=== PATIENT | female | born 1970 | race Caucasian/White ===

== ENCOUNTER 2020-08-20 17:16 | Outpatient (CLI) | payer BC, SELFPAY ==
--- NOTE | ~2020-08-20 | MM_ITS ---
EXAMINATION: MM screening [facility] BI w karma HISTORY: Screening mammogram TECHNIQUE: Craniocaudal and mediolateral oblique 3-D tomosynthesis images were obtained and synthetic 2-D images were generated. CAD analysis was submitted and interpreted. COMPARISON: 08/04/2019, 07/28/2018, 07/14/2017 BREAST PARENCHYMAL COMPOSITION: The breasts are extremely dense, which lowers the sensitivity of mamm ography. FINDINGS: There is no evidence of suspicious mass, calcification, or architectural distortion to sugg est malignancy in either breast. There has been no suspicious interval change. IMPRESSION: 1. No mammographic evidence of malignancy. 2. Recommend routine screening mammography in one year. BI-RADS Category 1: Negative Reviewed, dictated and finalized at location A.
== END 2020-08-20 17:17 | disposition home or self-care (01) ==
LOC: ANHIMG 17:20
PROVIDERS: Visit Provider Nurse Practitioner Women's Health
DX: Z12.31 Encounter for screening mammogram for malignant neoplasm of breast (principal)
CPT/HCPCS: 77063; 77067

== ENCOUNTER 2021-08-22 08:05 | Outpatient (CLI) | payer BC, SELFPAY ==
--- NOTE | ~2021-08-22 | MM_ITS ---
EXAMINATION: MM screening [facility] BI w karma HISTORY: Screening TECHNIQUE: Craniocaudal and mediolateral oblique 3-D tomosynthesis images were obtained and synthetic 2-D images were generated. CAD analysis was submitted and interpreted. COMPARISON: Comparison to multiple prior studies sequentially, with oldest reviewed study dated 05/14. BREAST PARENCHYMAL COMPOSITION: The breasts are extremely dense, which lowers the sensitivity of mamm ography. FINDINGS: There is no evidence of suspicious mass, calcification, or architectural distortion to sugg est malignancy in either breast. There has been no suspicious interval change. IMPRESSION: 1. No mammographic evidence of malignancy. 2. Recommend routine screening mammography in one year. BI-RADS Category 1: Negative Reviewed, dictated and finalized at location A.
== END 2021-08-22 08:06 | disposition home or self-care (01) ==
LOC: ANHIMG 08:06
PROVIDERS: Visit Provider Nurse Practitioner Women's Health
DX: Z12.31 Encounter for screening mammogram for malignant neoplasm of breast (principal)
CPT/HCPCS: 77063; 77067

== ENCOUNTER 2022-04-08 01:53 | Day surgery (SDC) | payer OTHER, SELFPAY ==
[2022-04-02 11:37] VITALS: BMI 23.2
--- NOTE | 2022-04-07 17:38 | PM.HPGS ---
History of Present Illness History of Present Illness Consent: Risks, benefits, and alternatives have been discussed and questions answered. Patient agrees to proceed with procedure. Chief complaint: diarrhea Narrative: Vonda Astorga is a 52 year old female with complaints of loose stools for over 5 years. Reports stools are watery, sometimes explosive with associated bloating and gas. She has at least 2 BM daily. she always has one in the morning and then the second one later it the day, usually 20-60 minutes after eating. She denies any association with any particular foods, her symptoms are better if she cooks her own food vs eating out though. Diarrhea is also worse 3-4 days before her menstrual cycle. Symptom improved some with eating a daily banana. She recently started on Metamucil but states it made her diarrhea worse so she discontinued it. Previous celiac panel was negative. Review of Systems Review of Systems: All systems reviewed & are unremarkable except as noted in HPI and below PMFSH Past Medical History Medical History Loose stools Social History Social History Smoking status: Never smoker Alcohol intake: current Alcohol use details: 5 drinks per year Substance use: never Living arrangements: with family Spiritual care concerns: No Meds Home Medications and Allergies Home Medications Medication Instructions Recorded Confirmed Type norethindrone acetate 5 mg tablet 5 mg PO DAILY 01/26/22 04/02/22 History multivit with min-folic acid 1 tablet PO DAILY 04/02/22 04/02/22 History [Adult One Daily Multivitamin] sodium sul 1.479 gram-potas ch See Rx Instructions PO PER PKG DIR 04/02/22 04/08/22 Rx 0.188 gram-magnes sul 0.225 gram #24 tablet tablet Allergies Allergy/AdvReac Type Severity Reaction Status Date / Time morphine AdvReac Unknown Other Verified 04/08/22 09:10 Exam Const: General: alert Orientation/consciousness: patient oriented x3 Resp: Auscultation: clear to auscultation bilaterally Cardio: Rhythm: regular rhythm GI: GI Palp: Yes Soft to palpation and No Tenderness to palpation present (GI) Neuro: General: patient oriented x3 Assessment and Plan Assessment and plan (1) Chronic diarrhea: Code(s): K52.9 - Noninfective gastroenteritis and colitis, unspecified Status: Acute Assessment and Plan: Colonoscopy with possible biopsy or polypectomy or cautery or injection of substances.
[2022-04-08 09:15] VITALS: BP 121/78; PULSE 85; RESP 18; TEMP 36.5; O2SAT 98; BMI 22.4
[2022-04-08] MEDS: LACTATED RINGERS 1,000 ML 150 ML IV CONT (09:30)
--- NOTE | 2022-04-08 10:00 | WPDANESEPPF ---
Anes - Initial Pre Proc Eval Procedure: Operation Date: 04/08/22 10:30 Proposed Procedures p Screening Colonoscopy - Regulo Miller MD Date/Time: 04/08/22 10:00 Surgeon: Regulo Miller MD Pre Op Diagnosis: diarrhea Patient Data Age: 52 Gender: F Height: 1.88 m Weight: 79.4 kg Last Vital Signs Temp 97.7 F 04/08/22 09:15 Pulse 85 04/08/22 09:15 Resp 18 04/08/22 09:15 BP 121/78 04/08/22 09:15 Pulse Ox 98 04/08/22 09:15 Allergies Allergy/AdvReac Type Severity Reaction Status Date / Time morphine AdvReac Unknown Other Verified 04/08/22 09:10 Home Medications Medication Instructions Recorded Confirmed Type norethindrone acetate 5 mg tablet 5 mg PO DAILY 01/26/22 04/02/22 History multivit with min-folic acid 1 tablet PO DAILY 04/02/22 04/02/22 History [Adult One Daily Multivitamin] sodium sul 1.479 gram-potas ch See Rx Instructions PO PER PKG DIR 04/02/22 04/08/22 Rx 0.188 gram-magnes sul 0.225 gram #24 tablet tablet Patient hx anesthesia problems: none Family hx anesthesia problems: none Results Review: All pre-operative results and documents have been reviewed as part of the pre-operative evaluation. [facility] Past Medical History Medical History Loose stools Social History Social History Smoking status: Never smoker Alcohol intake: current Alcohol use details: 5 drinks per year Substance use: never Living arrangements: with family Spiritual care concerns: No Anes - Eval Final PreProcedure Day of Procedure 04/08/22 10:00 Patient weight: normal Heart: regular rate and rhythm Lungs: clear to auscultation Airway: Mallampati scale class II Neurological: alert and oriented Last oral intake: >/= 8 hours ASA classification: II Emergent: no Anesthetic plan: proceed Anesthesia type and monitoring: general GIVS and standard monitoring Results Review: All pre-operative results and documents have been reviewed as part of the pre-operative evaluation. Informed Consent: The patient's anesthetic plan and its attendant risks and benefits were discussed with the patient/family/POA. Questions were solicited and answers provided to the satisfaction of the patient/family/POA.
[2022-04-08] MEDS: SIMETHICONE ORAL SUSPENSION 20 MG/0.3 ML 30 ML BOTTLE 0.6 ML IRRIGATION (10:36)
[2022-04-08 10:51] VITALS: BP 96/72; PULSE 78; RESP 17; O2SAT 100
[2022-04-08 11:01] VITALS: BP 121/86; PULSE 67; RESP 18; O2SAT 100
[2022-04-08 11:11] VITALS: BP 130/79; PULSE 66; RESP 16; O2SAT 100
== END 2022-04-08 11:21 | disposition home or self-care (01) ==
PROVIDERS: PCP Nurse Practitioner; Visit Provider Internal Medicine Gastroenterology
PROC: 0DJD8ZZ Inspection of Lower Intestinal Tract, Via Natural or Artificial Opening Endoscopic (ICD-10-PCS; CPT 45378; principal; 2022-04-08 10:30)
DX: Z12.11 Encounter for screening for malignant neoplasm of colon (principal); R19.7 Diarrhea, unspecified
CPT/HCPCS: 45380; 88305; J2704; J7120

== ENCOUNTER 2022-06-03 15:38 | Emergency (ER) | payer OTHER, SELFPAY ==
--- NOTE | ~2022-06-03 | XR_ITS ---
EXAMINATION: XR hand LT min 3V DATE: 06/03/2022 16:20 INDICATION: Volleyball injury to the left fourth finger TECHNIQUE: Posteroanterior, oblique and lateral views of the left hand were obtained. COMPARISON: None. FINDINGS: Dorsal/ulnar dislocation of the fourth proximal interphalangeal joint. Small linear calcific density position ulnar to the head of the proximal phalanx likely representing a small avulsion fracture frag ment. Alignment of the remainder of the left hand is normal. No other fractures identified. Mild oste oarthritis at the first carpometacarpal and several interphalangeal joints. IMPRESSION: 1. Dorsal/ulnar dislocation of the left fourth proximal interphalangeal joint with small likely avuls ion fracture fragment along the ulnar side of the head of the proximal phalanx. Reviewed, dictated and finalized at location B. IMPRESSION: 1. Dorsal/ulnar dislocation of the left fourth proximal interphalangeal joint w ith small likely avulsion fracture fragment along the ulnar side of the head of the proximal phalanx.
--- NOTE | ~2022-06-03 | XR_ITS ---
XR hand LT min 3V DATE: 06/03/2022 17:36 INDICATION: Postoperative reduction examination, left fourth digit TECHNIQUE: 3 views of left hand COMPARISON: 06/03/2022 left hand FINDINGS: There is reduction of the posterior dislocation at the proximal interphalangeal joint of th e fourth digit, with evidence of a small cortical avulsion fracture from the anterior base of the mid dle phalanx. Subtle small bony densities are also noted at the dorsal aspect of the proximal interpha langeal joint. IMPRESSION: Reduction of posterior dislocation at proximal interphalangeal joint; small cortical avul maninder fracture of anterior base of middle phalanx Reviewed, dictated and finalized at location A. IMPRESSION: Reduction of posterior dislocation at proximal interphalangeal join t; small cortical avulsion fracture of anterior base of middle phalanx
[2022-06-03 16:07] VITALS: BP 115/65; PULSE 63; RESP 12; TEMP 36.7; O2SAT 100
--- NOTE | 2022-06-03 16:53 | ED.UPPEXIN ---
HPI - Extremity Injury (Upper) General Chief Complaint: Extremity Injury, Upper Stated Complaint: L hand pain Time Seen by Provider: 06/03/22 16:08 History of Present Illness HPI narrative: 32-year-old female presents to the emergency room for evaluation of a left fourth digit injury. Patient states she was playing volleyball when she attempted to spike the ball over the net causing her finger pain. Patient immediately noticed an abnormality in pain. Injury occurred just prior to arrival Related Data Home Medications Medication Instructions Recorded Confirmed norethindrone acetate 5 mg tablet 5 mg PO DAILY 01/26/22 04/02/22 multivitamin with minerals-folic 1 tablet PO DAILY 04/02/22 04/02/22 acid 0.4 mg tablet Allergies Allergy/AdvReac Type Severity Reaction Status Date / Time No Known Allergies Allergy Verified 04/08/22 10:29 Review of Systems Review of Systems: CONSTITUTIONAL: Denies fever, chills, or sweats. EYES: Denies visual changes, redness, or discharge. ENT: Denies rhinorrhea, congestion, sore throat, or otalgia. CARDIOVASCULAR: Denies chest pain, palpitations, or edema. RESPIRATORY: Denies cough or dyspnea. GASTROINTESTINAL: Denies abdominal pain, nausea, vomiting, or diarrhea. GENITOURINARY: Denies dysuria or hematuria. SKIN: Denies rash or itching. MUSCULOSKELETAL: Reports left fourth digit pain NEUROLOGIC: Denies headache, numbness, dizziness, or weakness. PSYCHIATRIC: Denies anxiety or depression. PMFSH Past Medical History Medical History Loose stools Social History Social History Smoking status: Never smoker Alcohol intake: current Alcohol use details: 5 drinks per year Substance use: never Spiritual care concerns: No Exam Narrative: GENERAL: Well-appearing, well-nourished, no physical limitations, and in no acute distress. HEAD: Normocephalic, atraumatic. EYES: Conjunctivae normal, PERRLA and EOMI. CHEST: Clear to auscultation. No respiratory distress. No wheezes rales or rhonchi. No tenderness. HEART: Regular rate and rhythm. No murmur heard. Normal peripheral pulses. ABDOMEN: Soft, nontender, nondistended, normal active bowel sounds. EXTREMITIES: Left hand: Obvious bony abnormality to the fourth digit, tenderness to the PIP joint. With swelling, neurovascular is intact as SKIN: Warm, dry, no rash. No noted wounds NEURO: No focal deficits. Alert and oriented x3. MAEW. CN's II-XI intact bilaterally, normal gait PSYCH: Cooperative. Normal mood and affect. Course Vital Signs Vital signs: Vital Signs Temperature 36.7 C 06/03/22 16:07 Pulse Rate 63 06/03/22 16:07 Respiratory Rate 12 06/03/22 16:07 Blood Pressure 115/65 06/03/22 16:07 Pulse Oximetry 100 06/03/22 16:07 Temperature 36.7 C 06/03/22 16:07 Pulse Rate 63 06/03/22 16:07 Respiratory Rate 12 06/03/22 16:07 Blood Pressure 115/65 06/03/22 16:07 Pulse Oximetry 100 06/03/22 16:07 Procedures Orthopedic Joint Reduction Joint #1: Orthopedic Joint Reduction Date: 06/03/22 Orthopedic Joint Reduction Time: 17:34 Time Out Performed: Yes Side: right Joint Reduction Location: finger Analgesia: nerve block Pre-Procedure Neuro Vascular Exam: normal Local Anesthesia: lidocaine 1% Amount of anesthesic used (mL): 6 Technique used: direct manipulation Post-reduction neuro exam: intact Post-reduction vascular: intact Post Reduction X-Ray Obtained: Yes Post Reduction X-Ray Results: reduced Splint Applied: Yes Patient Tolerated Procedure: well Discharge Plan Discharge Clinical Impression: Dislocation of finger Patient Disposition: Home, Self-Care Condition: Stable Instructions: Antibiotic Form, Finger Fracture (ED) Additional Instructions: Tylenol and ibuprofen a
[2022-06-03] MEDS: LIDOCAINE HCL 2% LOCAL INJ 20 ML VIAL (17:10)
== END 2022-06-03 17:45 | disposition home or self-care (01) ==
PROVIDERS: Emergency Provider Nurse Practitioner Family; PCP Nurse Practitioner
DX: S63.285A Dislocation of proximal interphalangeal joint of left ring finger, initial encounter (principal); W21.06XA Struck by volleyball, initial encounter; Y93.68 Activity, volleyball (beach) (court)
CPT/HCPCS: 26770; 73130; 99282

== ENCOUNTER 2022-10-27 16:35 | Outpatient (CLI) | payer OTHER, SELFPAY ==
--- NOTE | ~2022-10-27 | MM_ITS ---
EXAMINATION: MM screening [facility] BI w karma HISTORY: Screening mammogram TECHNIQUE: Craniocaudal and mediolateral oblique 3-D tomosynthesis images were obtained and synthetic 2-D images were generated. CAD analysis was submitted and interpreted. COMPARISON: 08/22/2021, 08/20/2020, 08/04/2019 BREAST PARENCHYMAL COMPOSITION: The breasts are heterogeneously dense, which may obscure small masses . FINDINGS: No suspicious mass, calcification, or architectural distortion are identified in either narda ast to suggest malignancy. There has been no suspicious interval change. IMPRESSION: 1. No mammographic evidence of malignancy. 2. Recommend routine screening mammography in one year. 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
== END 2022-10-27 16:36 | disposition home or self-care (01) ==
LOC: ANHIMG 16:36
PROVIDERS: PCP Nurse Practitioner; Visit Provider Nurse Practitioner Women's Health
DX: Z12.31 Encounter for screening mammogram for malignant neoplasm of breast (principal)
CPT/HCPCS: 77063; 77067

== ENCOUNTER 2023-11-26 13:22 | Outpatient (CLI) | payer OTHER, SELFPAY ==
--- NOTE | ~2023-11-26 | MM_ITS ---
EXAMINATION: MM screening [facility] BI w karma HISTORY: Screening mammogram TECHNIQUE: Craniocaudal and mediolateral oblique 3-D tomosynthesis images were obtained and synthetic 2-D images were generated. CAD analysis was submitted and interpreted. COMPARISON: 10/27/2022, 08/22/2021, 08/20/2020 BREAST PARENCHYMAL COMPOSITION: The breasts are heterogeneously dense, which may obscure small masses . FINDINGS: No suspicious mass, calcification, or architectural distortion are identified in either narda ast to suggest malignancy. There has been no suspicious interval change. IMPRESSION: 1. No mammographic evidence of malignancy. 2. Recommend routine screening mammography in one year. 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
--- NOTE | ~2023-11-26 | DEXA_ITS ---
Bone Density Report Name: DEONDRE SANTILLAN Age: 53 Sex: Female Ethnicity: White Date of : 1970 Indication: screening for osteoporosis; cancer Referring Provider: UNKNOWN, UNKNOWN Study: Bone densitometry was performed. Exam Date: November 26, 2023 Accession number: [id number] Bone Density: Region BMD T-score Z-score Classification AP Spine(L1-L4) 1.206 1.4 2.4 Normal Femoral Neck (Left) 0.768 -0.7 0.2 Normal Total Hip (Left) 0.915 -0.2 0.4 Normal Femoral Neck (Right) 0.754 -0.9 0.1 Normal Total Hip (Right) 0.840 -0.8 -0.3 Normal Total Hip Mean 0.878 -0.5 0.1 Normal World Health Organization criteria for BMD impression classify patients as: Normal (T-score at or above -1.0), Osteopenia (T-score between -1.0 and -2.5), or Osteoporosis (T-score at or below -2.5). 10-year Fracture Risk: FRAX not reported because: Premenopausal woman All T-scores for Spine Total, Hip Total, Femoral Neck at or above -1.0 Clinical Information Provided by Patient: Has used the following medications: Vitamin D Has the following medical conditions: Cancer Patient maximum height was 73.5 Drinks caffeinated beverages Onset of menses at age 19 Premenopausal Number of children 0 Impression: The patient's bone mass is within expected range for age, gender and ethnicity. Discussion: BONE DENSITY IS WITHIN EXPECTED LIMITS FOR AGE, SEX AND RACE. Bone density is within expected limits for age, sex and race at all sites measured. The patient should follow a healthful lifestyle (good nutrition with adequate calcium and vitamin D, and appropriate weight-bearing exercise). Follow-Up: Consider repeating this study in 5 years or sooner if there is some new clinical indication. Reported by: [facility] on 11/26/2023 2:06:00 PM. Reviewed, dictated and finalized at location A. [facility]
== END 2023-11-26 13:23 | disposition home or self-care (01) ==
LOC: ANHIMG 13:26
PROVIDERS: PCP Nurse Practitioner
DX: Z12.31 Encounter for screening mammogram for malignant neoplasm of breast (principal); Z78.0 Asymptomatic menopausal state
CPT/HCPCS: 77063; 77067; 77080

== ENCOUNTER 2025-01-11 15:15 | Outpatient (CLI) | payer OTHER, SELFPAY ==
--- NOTE | ~2025-01-11 | MM_ITS ---
EXAMINATION: MM screening tamiko BI w karma HISTORY: Screening TECHNIQUE: Craniocaudal and mediolateral oblique 3-D tomosynthesis images were obtained and synthetic 2-D images were generated. CAD analysis was submitted and interpreted. COMPARISON: Comparison to multiple prior studies sequentially, with oldest reviewed study dated 04/2018. BREAST PARENCHYMAL COMPOSITION: Dense: The breasts are extremely dense, which lowers the sensitivity of mammography. FINDINGS: There is no evidence of suspicious mass, calcification, or architectural distortion to sugg est malignancy in either breast. There has been no suspicious interval change. IMPRESSION: 1. No mammographic evidence of malignancy. 2. Recommend routine screening mammography in one year. BI-RADS Category 1: Negative Reviewed, dictated and finalized at location B. [facility]
--- OUTSIDE RECORDS SUMMARY | 2025-01-11 15:21 | XMS_ITS ---
Care Plan - [facility] Created on: January 11, 2025 DEONDRE SANTILLAN : 1970 Sex: Female Author Organization [facility] Address [address] [place] [address] Phone Care Team Providers Care Emt P Name Role Phone HAM TROTTER, DAJA C Unavailable [phone]
--- OUTSIDE RECORDS SUMMARY | 2025-01-11 15:21 | XMS_ITS | Clinical Summary ---
Author Organization [facility] Address [address] [place] [address] Care Team Providers Care Warp Tier Name Role Phone Yumiko Chilel MD Primary Care Provider [phone] Allergies No known active allergies Medications norethindrone ac-eth estradioL (MICROGESTIN 12/11) 1-20 mg-mcg per tablet Take 1 tablet by mouth daily 1 Active ondansetron ODT (ZOFRAN-ODT) 8 mg disintegrating tabletIndications:P revention of Post-Operative Nausea and Vomiting Take 1 tablet (8 mg total) by mouth every 8 (eight) hours as needed for nausea or vomiting 12 tablet 1 2 Active Active Problems Problem Noted Date Diagnosed Date 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 11/27/2021 Overview (11/27/2021): Added automatically from request for surgery [id number] Surgical History Surgery Date Site/Laterality Comments APPENDECTOMY 11/22/2011 - 11/21/2012 ORAL SURGERY Medical History Medical History Date Comments H/O dysplastic nevus 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 Monthly or less 11/28/2021 Q2: How many drinks containi ng alcohol do you have on a typical day when you are drinking? 1 or 2 11/28/2021 Q3: How often do you have si x or more drinks on one occasion? 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 Gender Identity Female 06/23/2022 9:57 AM CDT Sexual Orientation Straight 06/23/2022 9: 57 AM CDT Obstetrics History Last Filed Vital Signs Vital Sign Reading Time Taken Comments Blood Pressure 107/68 12/02/2021 9:57 AM DIRECTOR CUSTOMER Pulse 71 12/02/2021 9:57 AM DIRECTOR CUSTOMER Temperature 37.2 C (99 F) 12/02/2021 9:57 AM DIRECTOR CUSTOMER Respiratory Rate 20 12/02/2021 9:57 AM DIRECTOR CUSTOMER Oxygen Saturation 99% 12/02/2021 9:57 AM DIRECTOR CUSTOMER Inhaled Oxygen Concentration - - Weight 81 kg (178 lb 9.2 oz) 12/02/2021 6:25 AM DIRECTOR CUSTOMER Height 188 cm (6' 2 ) 12/02/2021 6:25 AM DIRECTOR CUSTOMER Body Mass Index 22.93 12/02/2021 6:25 AM DIRECTOR CUSTOMER Plan of Treatment Health Maintenance Due Date Last Done Comments Breast Cancer Screening-Mammogram 1970 Cervical Cancer Screening 1970 Colon Cancer Screening-Colonoscopy 1970 Depression Screening 1970 Hepatitis C Screening 1970 DTaP/Tdap/Td Vaccine (1 - Tdap) 1982 Hepatitis B Screening 1989 Regular Well Visit/Exam 18-64 1989 Zoster Vaccine (2 of 2) 10/29/2023 09/03/2023 Influenza Vaccine (#1) 2024 Pneumococcal vaccine <65 Aged Out No longer eligible based on patient's age to complete this topic Insurance [facility] ACCESS CHOICE Care Teams Warp Tier Relationship Specialty Start Date End Date Yumiko Chilel MD PCP - General Nurse Practitioner 12/26/21
--- OUTSIDE RECORDS SUMMARY | 2025-01-11 15:21 | XMS_ITS | Clinical Summary ---
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 Alfred light Plan of Treatment No Plan of Treatment Recorded Assessments Includes: Assessments from this encounter Findings - Vaginitis - Last Documented On 08/19/2022 1:56PM ; [facility] Medical Equipment - Implanted Devices Includes: Current Devices No Medical Equipment Recorded Medications Includes: Medications discussed during this encounter and other current Medications New / Renewed during this visit HANNAH CHONG BC on 08/19/2022 metroNIDAZOLE 0.75% Vaginal Gel Provider: HANNAH CHONG BC 5 day supply: 1 gram, 0 refills Diagnosis: Acute vaginitis as directed 1 MAGALY IN VAGINA EVERY NIGHT X 5 Pharmacy: [facility] - [address] , [place], [phone] - Last Documented On 1:56PM By HANNAH RECINOS ; [facility] Current Medications (continue as prescribed) Norethindrone Acet-Ethinyl E st 1-20 MG-MCG Oral Tablet 09/13/2023 Provider: MIA Diaz Diagnosis: One tablet daily Last Documented On 3 12:16PM By MIA RECINOS ; [facility] Past Medications on file Fluconazole 150 MG Oral Tablet 11/17/2023 - 11/19/2023 Provider: HANNAH KAY RN IVONNE Diagnosis: Acute vaginitis as directed take one tablet today and repeat in 3 days Last Documented On 3 2:35PM By HANNAH RECINOS ; [facility] metroNIDAZOLE 500 MG Oral Tablet 08/25/2022 - 09/01/2022 Provider: HANNAH KAY RN IVONNE Diagnosis: Acute vaginitis One tablet twice a day ONE T WICE DAILY WITH FOOD NO ETOH Last Documented On 2 7:39AM By HANNAH RECINOS ; [facility] Flagyl 500MG Oral Tablet 07/19/2017 - 07/26/2017 Provi princess: MIA RECINOS Diagnosis: One tablet twice a day Last Documented On 7 2:40PM By MIA RECINOS ; [facility] Medications Administered Includes: Administered Medications from this encounter No Administered Medications Recorded Results Includes: Results discussed during this encounter LIQUID BASED PAP W HPV [facility] Laboratory Ordered by MIA SOTO on 08/14/[address] [place] [address], [id number] Collected: 08/14/2022 Report ed: 08/19/2022 12:07 tel: Last Documented On 2 1:28PM ; [facility] Reviewed by HANNAH KAY RN IVONNE on 08/19/2022; All test results are final unless otherwise noted. LIQUID BASED PAP W HPV See Note None Last Documented On 08/19/2022 12:25PM ; [facility] Note: Routine exam07/09//NONE GIVENCervix, EndocervixSatisfactory for evaluation.Endocervical/transformation zone componentpresent.Negative for intraepithelial lesion or malignancy.Shift in vaginal ramya suggestive of bacterialvaginosis.This Pap test has been evaluated with computerassisted technology.CAPUTO, CT(ASCP)CT Screening location:[id number] Administration MELISSA Giordano [id number] Observer: (ARC) History of Present Illness Includes: History of Present Illness from this encounter No History of Present Illness Recorded Social History No Social History Recorded - Smoking Status Unknown Procedures and Surgical History Surgical History Last Updated Previous colposcopy 202008/14/2022 Last Documented On 2 1:28PM ; [facility] History of appendectomy 08/13/2021 Last Documented On 2 1:28PM ; [facility] Surgical / procedural histor y oral surgery ~Deep tissue removed for mole on lower left back 08/13/2021 Last Documented On 2 1:28PM ; [facility] Medical History Includes: Medical History addressed during this encounter Description Last Updated History of screening mammogram was perfo rmed 08/20/2020 11/11/2023 Last Documented On 2 1:28PM ; [facility] LMP: 07/09/2022 11/11/2023 Last Documented On 2 1:28PM ; [facility] Last pap smear date 08/09/2020 08/13/2021 Last Documented On 2 1:28PM ; [facility] Aborta 1 08/13/2021 Last Documented On 2 1:28PM ; [facility] Cancer 08/13/2021 Last Documented On 2 1:28PM ; [facility] Contraception: loloestrin 08/13/2021 Last Documented On 2 1:28PM ; [facility] 1 08/13/2021 Last Documented On 2 1:28PM ; [facility] History of acute bronchitis monitored by PCP 08/13/2021 Last Documented On 2 1:28PM ; [facility] History of cervical dysplasia 12-31-08 COL PO LGSIL 08/13/2021 Last Documented On 2 1:28PM ; [facility] History of human papilloma virus infecti on 08/13/2021 Last Documented On 2 1:28PM ; [facility] History of Pap smear done 06/24/201707/24 12/2020 Last Documented On 2 1:28PM ; [facility] Result: normal 08/13/2021 Last Documented On 2 1:28PM ; [facility] Sexually active 08/13/2021 Last Documented On 2 1:28PM ; [facility] Result: normal 08/08/2020 Last Documented On 2 1:28PM ; [facility] Family History Includes: Family History addressed during this encounter Description Last Updated Maternal aunt's history of m alignant female breast neoplasm (2) maternal aunts 08/08/2020 Last Documented On 2 1:28PM ; [facility] Maternal history of hypertension mother 08/08/2020 Last Documented On 2 1:28PM ; [facility] Maternal uncle's history of diabetes lisbet litus maternal uncle 08/08/2020 Last Documented On 2 1:28PM ; [facility] Paternal grandfather's history of family history of heart disease pgf 08/08/2020 Last Documented On 2 1:28PM ; [facility] Family history unchanged 08/03/2019 Last Documented On 2 1:28PM ; [facility] Family history of heart disease fathers side 03/02/2013 Last Documented On 2 1:28PM ; [facility] Family history of malignant female breas t neoplasm (2) maternal aunts 03/02/2013 Last Documented On 2 1:28PM ; [facility] Spouse name: mikki 01/19/2011 Last Documented On 2 1:28PM ; [facility] Family history of hypertension mother Last Documented On 2 1:28PM ; [facility] Family history of diabetes mellitus mate rnal uncle 12/20/2009 Last Documented On 2 1:28PM ; [facility] Family history of Cancer 11/04/2009 Last Documented On 2 1:28PM ; [facility] Family medical history of high blood pre ssure 11/04/2009 Last Documented On 2 1:28PM ; [facility] Family medical history of High Cholester ol 11/04/2009 Last Documented On 2 1:28PM ; [facility] Review of Systems Includes: Review of Systems from this encounter No Review of Systems Recorded Mental Status Includes: Mental Status from this encounter No Mental Status Recorded Functional Status Includes: Functional Status from this encounter No Functional Status Recorded Physical Exam Includes: Physical Exam from this encounter No Physical Exam Recorded Allergies Includes: Active Allergies No Known Allergies Encounters Encounter Provider Location Date Check-In Time Check-Out Time Diagnosis CHART UPDATE HANNAH KAY RN [facility] 08/19/2022 1:27PM 11:59PM Vaginitis Insurance Includes: Active Insurance Policies Plan Name Member ID Group # Subscriber Relationship Effect alicja Dates 1 - [facility] [id number] DEONDRE bergeron Clinical Notes Includes: Clinical Notes from this encounter No Clinical Notes Recorded
--- OUTSIDE RECORDS SUMMARY | 2025-01-11 15:21 | XMS_ITS | Referral Summary ---
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 Gender Identity Female 06/23/2022 9:57 AM CDT Sexual Orientation Straight 06/23/2022 9: 57 AM CDT Last Filed Vital Signs Vital Sign Reading Time Taken Comments Blood Pressure 107/68 12/02/2021 9:57 AM SUPERVISOR [employer]INE GRADING Pulse 71 12/02/2021 9:57 AM SUPERVISOR [employer]INE GRADING Temperature 37.2 C (99 F) 12/02/2021 9:57 AM SUPERVISOR FINE GRADING Respiratory Rate 20 12/02/2021 9:57 AM SUPERVISOR FINE GRADING Oxygen Saturation 99% 12/02/2021 9:57 AM SUPERVISOR [employer]INE GRADING Inhaled Oxygen Concentration - - Weight 81 kg (178 lb 9.2 oz) 12/02/2021 6:25 AM SUPERVISOR [employer]AD[employer] Height 188 cm (6' 2 ) 12/02/2021 6:25 AM SUPERVISOR FINE GRADING Body Mass Index 22.93 12/02/2021 6:25 AM SUPERVISOR FINE GRADING Plan of Treatment Not on file Insurance [facility] [employer] Care Teams Warehouse Assembly Worker Relationship Specialty Start Date End Date Yumiko Chilel MD PCP - General Nurse Practitioner 12/26/21
--- OUTSIDE RECORDS SUMMARY | 2025-01-11 15:21 | XMS_ITS | Clinical Summary ---
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 Alfred light Plan of Treatment No Plan of Treatment Recorded Assessments Includes: Assessments from this encounter Findings - [N76.0 - Acute vaginitis] Vaginitis - Last Documented On 11/17/2023 2:34PM ; [facility] Medical Equipment - Implanted Devices Includes: Current Devices No Medical Equipment Recorded Medications Includes: Medications discussed during this encounter and other current Medications New / Renewed during this visit HANNAH KAY RN IVONNE on 11/17/2023 Fluconazole 150 MG Oral Tablet Provider: HANNAH KAY RN IVONNE BC 2 day supply: 2 tablet, 0 refills Diagnosis: Acute vaginitis as directed take one tablet today and repeat in 3 days Pharmacy: [facility] - [address] , [place], [phone] - Last Documented On 2:35PM By HANNAH RECINOS ; [facility] Current Medications (continue as prescribed) Norethindrone Acet-Ethinyl E st 1-20 MG-MCG Oral Tablet 09/13/2023 Provider: MIA Diaz Diagnosis: One tablet daily Last Documented On 3 12:16PM By MIA RECINOS ; [facility] Past Medications on file metroNIDAZOLE 500 MG Oral Tablet 08/25/2022 - 09/01/2022 Provider: HANNAH KAY RN IVONNE BC Diagnosis: Acute vaginitis One tablet twice a day ONE T WICE DAILY WITH FOOD NO ETOH Last Documented On 2 7:39AM By HANNAH KAY ABE ; [facility] metroNIDAZOLE 0.75% Vaginal Gel 08/19/2022 - 08/24/2022 Provider: HANNAH CHONG BC Diagnosis: Acute vaginitis as directed 1 MAGALY IN VAGINA EVERY NIGHT X 5 Last Documented On 2 1:56PM By HANNAH RECINOS ; [facility] Flagyl 500MG Oral Tablet 07/19/2017 - 07/26/2017 Provi princess: MIA RECINOS Diagnosis: One tablet twice a day Last Documented On 7 2:40PM By MIA RECINOS ; [facility] Medications Administered Includes: Administered Medications from this encounter No Administered Medications Recorded Results Includes: Results discussed during this encounter No Results Recorded For Specified Dates History of Present Illness Includes: History of Present Illness from this encounter No History of Present Illness Recorded Social History No Social History Recorded - Smoking Status Unknown Procedures and Surgical History Surgical History Last Updated Previous colposcopy 202008/14/2022 Last Documented On 3 2:32PM ; [facility] History of appendectomy 08/13/2021 Last Documented On 3 2:32PM ; [facility] Surgical / procedural histor y oral surgery ~Deep tissue removed for mole on lower left back 08/13/2021 Last Documented On 3 2:32PM ; [facility] Medical History Includes: Medical History addressed during this encounter Description Last Updated History of diaignostic fiberoptic colono scopy 04/08/2022 11/11/2023 Last Documented On 3 2:32PM ; [facility] History of screening mammogram was perfo rmed 10/27/2022 11/11/2023 Last Documented On 3 2:32PM ; [facility] LMP: 10/20/2023 11/11/2023 Last Documented On 3 2:32PM ; [facility] Aborta 1 08/13/2021 Last Documented On 3 2:32PM ; [facility] Cancer 08/13/2021 Last Documented On 3 2:32PM ; [facility] Contraception: loloestrin 08/13/2021 Last Documented On 3 2:32PM ; [facility] 1 08/13/2021 Last Documented On 3 2:32PM ; [facility] History of acute bronchitis monitored by PCP 08/13/2021 Last Documented On 3 2:32PM ; [facility] History of cervical dysplasia 12-31-08 COL PO LGSIL 08/13/2021 Last Documented On 3 2:32PM ; [facility] History of human papilloma virus infecti on 08/13/2021 Last Documented On 3 2:32PM ; [facility] Sexually active 08/13/2021 Last Documented On 3 2:32PM ; [facility] Family History Includes: Family History addressed during this encounter Description Last Updated Family history reviewed - unchanged [facility] e last visit 11/11/2023 Last Documented On 3 2:32PM ; [facility] Maternal aunt's history of m alignant female breast neoplasm (2) maternal aunts 08/08/2020 Last Documented On 3 2:32PM ; [facility] Maternal history of hypertension mother 08/08/2020 Last Documented On 3 2:32PM ; [facility] Maternal uncle's history of diabetes lisbet litus maternal uncle 08/08/2020 Last Documented On 3 2:32PM ; [facility] Paternal grandfather's history of family history of heart disease pgf 08/08/2020 Last Documented On 3 2:32PM ; [facility] Review of Systems Includes: Review of Systems [...] Time Diagnosis CHART UPDATE HANNAH KAY RN IVONNE 11/17/2023 2:32PM 11:59PM Vaginitis Insurance Includes: Active Insurance Policies Plan Name Member ID Group # Subscriber Relationship Effect alicja Dates 1 - [facility] [id number] DEONDRE Harrell SALIMAANA Torres [facility] Clinical Notes Includes: Clinical Notes from this encounter * Progress note Date Encounter Last Documented by 11/17/2023 CHART UPDATE Last documented on 11/17/2023; 2:34 PM, HANNAH KAY RN IVONNE ; [facility] Active Problems & Conditions - D23.9 - Compound Nevus - lower back-bx done [address] Jules Current Medication - Norethindrone Acet-Ethinyl Est 1-20 MG-MCG Oral Tablet One tablet daily, 84 days, 0 refills Past Medical/Surgical History Reported: LMP: 10/20/2023 and Contraception: loloestrin. Medical: Cancer. Surgical / Procedural: Surgical / procedural history oral surgery Deep tissue removed for mole on lower left back. Previous colposcopy 2020. : 1 and aborta 1. Sexual: Sexually active. Other: Diaignostic fiberoptic colonoscopy 04/08/2022. Screening mammogram was performed 10/27/2022 Diagnoses: Acute bronchitis monitored by PCP. Cervical dysplasia 12-31-08 COLPO LGSIL. Human papilloma virus infection Surgical: - Appendectomy Allergies - No Known Allergies Family History Family history reviewed - unchanged since last visit Maternal: Systemic hypertension mother Paternal grandfather's: Heart disease pgf Maternal aunt's: Malignant female breast neoplasm (2) maternal aunts Maternal uncle's: Diabetes mellitus maternal uncle Assessment - [N76.0 - Acute vaginitis] Vaginitis Plan StartCited - Acute vaginitis Fluconazole 150 MG tablet as directed take one tablet today and repeat in 3 days, 2 days, 0 refills EndCited StartCited - Other PHY ORDER/COMMENT Please inform pt pap is WNL and rx for yeast at pharmacy thanks EndCited Health Reminders - Colorectal Cancer Screening satisfied 04/08/2022. - Mammogram satisfied 10/27/2022.
--- OUTSIDE RECORDS SUMMARY | 2025-01-11 15:21 | XMS_ITS | Clinical Summary ---
Author Organization [facility] Address [address] [place] [address] Care Team Providers Care Statistical Engineer Name Role Phone Yumiko Chilel NP Primary Care Provider [phone] Allergies No known active allergies Medications norethindrone-et hinyl estradiol 1-20 MG-MCG tablet Take 1 tablet by mouth daily. 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 including hip ([facility]) 11/27/2021 Overview (12/08/2021): Added automatically from request for surgery [id number] Immunizations Name Administration Dates Next Due Shingrix 09/03/2023 Family History Medical History Relation Comments Heart Disease Father Breast Cancer Mother Hypertension Mother Heart Disease Paternal Grandfather Breast Cancer Sister 1 Breast Cancer Sister 2 Relation Status Comments Father Mother Paternal Grandfather Sister 1 Sister 2 Social History Tobacco Use Types Packs/Day Years Used Date Smoking Tobacco: Never Passive Smoke Exposure: Never Smokeless Tobacco: Never Tobacco Cessation:Counseling Given: No Comments:The provider can provide you with more information about quitting. Alcohol Use Standard Drinks/Week Comments Yes 0 (1 standard drink = 0.6 oz pur e alcohol) 1-6 drinks per year PHQ-2 Answer Date Recorded Patient Health Questionnaire-2 Score 0 05/06/2023 Comments No Sex and Gender Information Value Date Recorded Sex Assigned at Not on file Legal Sex Female 7:02 PM CDT Gender Identity Not on file Sexual Orientation Not on file Last Filed Vital Signs Vital Sign Reading Time Taken Comments Blood Pressure 135/82 05/06/2023 3:36 PM CDT Pulse 70 05/06/2023 3:36 PM CDT Temperature 36.9 C (98.4 F) 05/06/2023 3:36 PM CDT Respiratory Rate 22 05/06/2023 3:36 PM CDT Oxygen Saturation 100% 05/06/2023 3:36 PM CDT Inhaled Oxygen Concentration - - Weight 81.2 kg (179 lb) 05/06/2023 3:36 PM CDT Height 188 cm (6' 2 ) 05/06/2023 3:36 PM CDT Body Mass Index 22.98 05/06/2023 3:36 PM CDT Plan of Treatment Upcoming Encounters Date Type Department Care Team (Late st Contact Info) Description 02/06/2025 2:20 PM CDT Office Visit [facility] Family [facility] - [place] [address] [address] Yumiko Chilel, SECURITIES ANALYST [id number] [place] [address] Health Maintenance Due Date Last Done Comments Cervical Cancer Screening Pa p Smear (Age 30 to 64) Every 3 Years 1971 DTaP, Tdap and Td Vaccines ( 1 - Tdap) 1990 Hepatitis B Vaccines (1 of 3 - 19+ 3-dose series) 1990 Zoster Vaccines (2 of 2) 10/29/2023 09/03/2023 Annual Physical 05/06/2024 05/06/2023, 12/08/2021 COVID-19 Vaccine (1 - 2023-2 5 season) 2024 Influenza Adult (#1) 2024 PHQ-2 (Physician [place]) 11/22/2024 05/06/2023 Mammogram Screening 11/26/2025 11/26/2023 Cervical Cancer Screening Pa p with HPV Testing (Age 30 to 64) Every 5 Years 08/14/2027 08/14/2022 Cervical Cancer Screening wi th HPV 08/14/2027 Colorectal Cancer Screening Colonoscopy (10 Years) 04/08/2032 04/08/2022, 04/08/2022, 04/08/2022 Hepatitis C Completed 05/20/2023 Meningococcal B Vaccine Aged Out No l onger eligible based on patient's age to complete this topic Meningococcal Vaccine Aged Out No nancy rafa eligible based on patient's age to complete this topic Pneumococcal Vaccine: Pediatrics (0 to 5 Years) and At-Risk Patients (6 to 64 Years) Aged Out No longer eligible b ased on patient's age to complete this topic RSV Immunizations Under 20 Months Aged Out No longer eligible b ased on patient's age to complete this topic Procedures Procedure Name Priority Date/Time Associated Diagnosis Comments MAMMOGRAM GENERIC (SCAN ORDER) 11/26/2023 HEPATITIS C ANTIBODY W/RFX TO HCV RNA Routine 05/20/2023 7:58 AM CDT Need for hepatitis C screening test OUTSIDE CYTOPATH CERV/VAG INTERPRET (PAP) 08/14/2022 COLONOSCOPY GENERIC (SCAN ORDER) 04/08/2022 from Last 3 Months or Most Recently Relevant to Health Maintenance Results * MAMMOGRAM GENERIC (11/26/2023) Anatomical Region Laterality Modality Other 11/26/2023 [facility] Scanned SCANNING Final Resu lt * HEPATITIS C ANTIBODY W/RFX TO HCV RNA (05/20/2023 7:58 AM CDT) HEPATITIS C AB NON-REACT ISABELL NON-REACT [email or web address] [facility] Comment: HCV antibody was non-reactive. There is no laboratory evidence of HCV infection. In most cases, no further action is required. However, if recent HCV exposure is suspected, a test for HCV RNA (test code 89660) is suggested. For additional information please refer to http://education.[employer]/faq/ACJ99z5 (This link is being provided for informational/ educational purposes only.) 05/20/2023 7:58 AM CDT 05/20/2023 7:59 AM CDT Narrative Resulting Agency Comment Performing Organization Information: Site ID: [id number] Name: [facility] Address: [address] [address] Director: Hien Cruz MD Yumiko Chilel SECURITIES ANALYST LABORATORY Final Res ult [facility] [place] [address] [address], [place] * PAP SMEAR WITH HPV (08/14/2022) 08/14/2022 [facility] Scanned SCANNING Final Resu lt * COLONOSCOPY GENERIC (04/08/2022) 04/08/2022 [facility] Scanned SCANNING Final Resu lt from Last 3 Months or Most Recently Relevant to Health Maintenance Insurance Care Teams Statistical Engineer Relationship Specialty Start Date End Date Yumiko Chilel NP [id number] [place] [id number] PCP - General NURSE PRACTITIONER 11/07/21
--- OUTSIDE RECORDS SUMMARY | 2025-01-11 15:21 | XMS_ITS | Clinical Summary ---
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 Alfred light Plan of Treatment - Follow-up visit 1 year or as needed - Last Documented On 11/11/2023 3:40PM ; [facility] - Clinical summary provided to patient - Last Documented On 11/11/2023 3:40PM ; [facility] Pending Tests Order Diagnosis Results Due Ordering Provider In office procedures - *Clia Waived Labs Urine Test Irregular menstruation, unspecified 11/25/23 MIA LYNN NP-BC Last Documented On 4 11:21AM ; [facility] Instructions to patient Instructions for patient : B reast Self Exam discussed Last Documented On 3 3:14PM ; [facility] Education and Decision Aids were provided during visit for: Patient Education: Daily meena cium and vitamin D Last Documented On 3 3:14PM ; [facility] Patient Education: weight be aring exercise Last Documented On 3 3:14PM ; [facility] Assessments Includes: Assessments from this encounter Findings - NORMAL FEMALE EXAM [Z01.419 - Encounter for gynecological examination (general) (routine) without abnormal findings] - Last Documented On 11/11/2023 3:40PM ; [facility] - Screening Malig. Neoplasm Rectum [Z12.12 - Encounter for screening for malignant neoplasm of rectum] - Last Documented On 11/11/2023 3:40PM ; [facility] Instructions Includes: Instructions from this encounter Instructions to patient Instructions for patient : B reast Self Exam discussed Last Documented On 3 3:14PM ; [facility] Education and Decision Aids were provided during visit for: Patient Education: Daily meena cium and vitamin D Last Documented On 3 3:14PM ; [facility] Patient Education: weight be aring exercise Last Documented On 3 3:14PM ; [facility] Medical Equipment - Implanted Devices Includes: Current Devices No Medical Equipment Recorded Medications Includes: Medications discussed during this encounter and other current Medications Current Medications (continue as prescribed) Norethindrone Acet-Ethinyl E st 1-20 MG-MCG Oral Tablet 09/13/2023 Provider: MIA Diaz Diagnosis: One tablet daily Last Documented On 3 12:16PM By MIA RECINOS ; [facility] Past Medications on file Fluconazole 150 MG Oral Tablet 11/17/2023 - 11/19/2023 Provider: HANNAH CHONG BC Diagnosis: Acute vaginitis as directed take one tablet today and repeat in 3 days Last Documented On 3 2:35PM By HANNAH RECINOS ; [facility] metroNIDAZOLE 500 MG Oral Tablet 08/25/2022 - 09/01/2022 Provider: HANNAH CHONG BC Diagnosis: Acute vaginitis One tablet twice a day ONE T WICE DAILY WITH FOOD NO ETOH Last Documented On 2 7:39AM By HANNAH RECINOS ; [facility] metroNIDAZOLE 0.75% Vaginal Gel 08/19/2022 - 08/24/2022 Provider: HANNAH CHONG BC Diagnosis: Acute vaginitis as directed 1 MAGALY IN VAGINA EVERY NIGHT X 5 Last Documented On 2 1:56PM [facility] ; [facility] Flagyl 500MG Oral Tablet 07/19/2017 - 07/26/2017 Provi princess: [facility] Diagnosis: One tablet twice a day Last Documented On 7 2:40PM By [facility] ; [facility] Medications Administered Includes: Administered Medications from this encounter No Administered Medications Recorded Vital Signs Includes: Vital Signs from this encounter Vital Name 11/11/2023 03:21P Blood Pressure Sitting L 122/70 BP Cuff Size Regular Temp-Temporal 98.4 Height (in) 72 Weight (lb) 180.4 Body Mass Index 24.5 Body Surface Area 2 Last Documented: On 11/11/2023 3:23PM ; [facility] Results Includes: Results discussed during this encounter No Results Recorded For Specified Dates History of Present Illness Includes: History of Present Illness from this encounter JAMAL SANTILLAN is a 53 year old female. - Allergy list reviewed - Medication list reviewed - Primary Care Provider: Yumiko Goodwin, Social History Description Last Updated Not using alcohol 11/11/2023 Last Documented On 3 3:40PM ; [facility] Sexually active with 1 partn ers in the last year , control pills 11/11/2023 Last Documented On 3 3:40PM ; [facility] Tobacco non-user 08/14/2022 Last Documented On 3 3:14PM ; [facility] Not using drugs 08/13/2021 Last Documented On 3 3:14PM ; [facility] Smoking Status Unknown Procedures and Surgical History Includes: Procedures from this encounter Procedures Code Diagnosis Performing Provider Service L ocation Service Date use of tobacco assessment performed 1000F Last Documented On 3 3:20PM ; [facility] cervical Pap smear 79925 Last Documented On 3 3:14PM ; [facility] history of cervical Pap smear 08/13/2021 27882 Last Documented On 3 3:20PM ; [facility] fecal occult blood test was negative 87714 Last Documented On 3 3:14PM ; [facility] test negative Last Documented On 3 3:24PM ; [facility] Surgical History Last Updated Previous colposcopy 202008/14/2022 Last Documented On 3 3:14PM ; [facility] History of appendectomy 08/13/2021 Last Documented On 3 3:14PM ; [facility] Surgical / procedural histor y oral surgery ~Deep tissue removed for mole on lower left back 08/13/2021 Last Documented On 3 3:14PM ; [facility] Medical History Includes: Medical History addressed during this encounter Description Last Updated History of diaignostic fiberoptic colono scopy 04/08/2022 11/11/2023 Last Documented On 3 3:40PM ; [facility] History of screening mammogram was perfo rmed 10/27/2022 11/11/2023 Last Documented On 3 3:40PM ; [facility] LMP: 10/20/2023 11/11/2023 Last Documented On 3 3:40PM ; [facility] Aborta 1 08/13/2021 Last Documented On 3 3:14PM ; [facility] Cancer 08/13/2021 Last Documented On 3 3:14PM ; [facility] Contraception: loloestrin 08/13/2021 Last Documented On 3 3:14PM ; [facility] 1 08/13/2021 Last Documented On 3 3:14PM ; [facility] History of acute bronchitis monitored by PCP 08/13/2021 Last Documented On 3 3:14PM ; [facility] History of cervical dysplasia 12-31-08 COL PO LGSIL 08/13/2021 Last Documented On 3 3:14PM ; [facility] History of human papilloma virus infecti on 08/13/2021 Last Documented On 3 3:14PM ; [facility] Sexually active 08/13/2021 Last Documented On 3 3:14PM ; [facility] Family History Includes: Family History addressed during this encounter Description Last Updated Family history reviewed - unchanged [facility] e last visit 11/11/2023 Last Documented On 3 3:40PM ; [facility] Maternal aunt's history of m alignant female breast neoplasm (2) maternal aunts 08/08/2020 Last Documented On 3 3:14PM ; [facility] Maternal history of hypertension mother 08/08/2020 Last Documented On 3 3:14PM ; [facility] Maternal uncle's history of diabetes lisbet litus maternal uncle 08/08/2020 Last Documented On 3 3:14PM ; [facility] Paternal grandfather's history of family history of heart disease pgf 08/08/2020 Last Documented On 3 3:14PM ; [facility] Review of Systems Includes: Review of Systems from this encounter No Review of Systems Recorded Mental Status Includes: Mental Status from this encounter No Mental Status Recorded Functional Status Includes: Functional Status from this encounter No Functional Status Recorded Physical Exam Includes: Physical Exam from this encounter Allergies Includes: Active Allergies No Known Allergies Encounters Encounter Provider Location Date Check-In Time Check-Out Time Diagnosis [facility] - [facility]LISHED [facility] MIA LYNN [facility] 11/11/20 23 3:14PM 3:41PM Screening Malig. Neoplasm Rectum,Normal Female Exam Insurance Includes: Active Insurance Policies Plan Name Member ID Group # Subscriber Relationship Effect alicja Dates 1 - [facility] [id number] VONDA SANTILLAN S [facility] Clinical Notes Includes: Clinical Notes from this encounter * Progress note Date Encounter Last Documented by 11/11/2023 [facility]OMAN - ESTABLISHED PT Last documented on 11/11/2023; 3:40 PM, MIA LYNN IVONNE-; [facility] Active Problems & Conditions - Compound Nevus - lower back-bx done [address] Jules Chief Complaint The Chief Complaint is: WWE, no other concerns or problems, needs to have lipids done. History of Present Illness VONDA SANTILLAN is a 53 year old female. - Allergy list reviewed - Medication list reviewed - Primary Care Provider: Yumiko Goodwin, Current Medication - Norethindrone Acet-Ethinyl Est 1-20 [...] Human papilloma virus infection Surgical: - Appendectomy Social History Tobacco use: Tobacco non-user. Alcohol: Not using alcohol. Drug Use: Not using drugs. Sexual: Sexually active with 1 partners in the last year , control pills. Allergies - No Known Allergies Family History Family history reviewed - unchanged since last visit Maternal: Systemic hypertension mother Paternal grandfather's: Heart disease pgf Maternal aunt's: Malignant female breast neoplasm (2) maternal aunts Maternal uncle's: Diabetes mellitus maternal uncle Physical Findings - Vitals taken 11/11/2023 03:21 pm BP-Sitting L 122/70 mmHg BP Cuff Size Regular Temp-Temporal 98.4 F Height 72 in Weight 180 lbs 6.4 oz Body Mass Index 24.5 kg/m2 Body Surface Area 2 m2 Standard Measurements: - Patient was not observed to be obese. General Appearance: - Well developed. - Well nourished. - In no acute distress. Neck: Thyroid: - Showed no abnormalities. Lymph Nodes: - Supraclavicular lymph nodes were not enlarged. - Axillary lymph nodes were not enlarged. Breasts: Right Breast: - Nipple was normal. - No abnormal secretion. - No mass was found. - No tenderness. Left Breast: - Nipple was normal. - No abnormal secretion. - No mass was found. - No tenderness. Lungs: - Clear to auscultation. Cardiovascular: Heart Rate And Rhythm: - Normal. Murmurs: - No murmurs were heard. Back: - No right costovertebral angle tenderness. - No left costovertebral angle tenderness. Abdomen: Palpation: - Abdominal non-tender. - No mass was palpated in the abdomen. Liver: - Not enlarged. Spleen: - Not enlarged. Urinary System: Bladder: - Normal. - Not distended. - Not tender. - Did not have a mass. - Incontinence was not demonstrated. Genitalia: External: - Genitalia showed no abnormalities. Pelvic: - No ovarian mass. Vagina: - No vaginal discharge was observed. - No cystocele was observed. - No rectocele was observed. Cervix: - Showed no lesion. - Did not demonstrate pain elicited by motion. Uterus: - Not enlarged. - Not tender. Uterine Adnexae: - Uterine adnexa was not tender. Rectovaginal: - Tissue was normal. Rectal: - Exam: normal. Psychiatric: Appearance: - Grooming was normal. Tests Laboratory-based Chemistry: Fecal Analysis: Fecal occult blood test was negative. Laboratory Studies: Test: test negative. Pathology: Cytology: Cervical Pap smear. Assessment - NORMAL FEMALE EXAM [Z01.419 - Encounter for gynecological examination (general) (routine) without abnormal findings] - Screening Malig. Neoplasm Rectum [Z12.12 - Encounter for screening for malignant neoplasm of rectum] Previous Tests Pathology: Cytology: Cervical Pap smear 08/13/2021. Counseling/Education - Instructions for patient: Breast Self Exam discussed - Patient Education: Daily calcium and vitamin D - Patient Education: weight bearing exercise Will have FSH drawn at least one week after last active ocp. If not indicative of menopause, will refill for 1 year and recheck next year. Vonda is aware to abstain or use condoms as a back up method until results are available. Handwritten rx given for lab of ptTrini me[facility]. Had recent lipid panel done through employer, so will fwd results to me. Plan StartCited - Asymptomatic menopausal state Radiology @ other: DEXA (to be scheduled) EndCited StartCited - Encntr screen mammogram for malignant neoplasm of breast Radiology @ other/*MAMMOGRAPHY: SCREENING MAMMOGRAM Instructions: Additional images/ultrasounds if indicated Please send to PCP EndCited StartCited - Encounter for screening for malignant neoplasm of rectum In office procedures/*Clia Waived Labs: *FOBT* Fecal Occult Blood Test EndCited StartCited - Irregular menstruation, unspecified Lab: FSH Instructions: to be done at outside lab In office procedures/*Clia Waived Labs: Urine Test EndCited StartCited - Other Follow-up 1 year/prn - need most recent lipid panel please. Thank you! EndCited - Follow-up visit 1 year or as needed - Clinical summary provided to patient Practice Management Preventive medicine established patient checkup adult 40-64 years; Use of tobacco assessment performed. Health Reminders - Assess BMI satisfied 11/11/2023. - Assess Tobacco Use satisfied 11/11/2023. - Colorectal Cancer Screening satisfied 11/11/2023. - Mammogram satisfied 11/11/2023.
--- OUTSIDE RECORDS SUMMARY | 2025-01-11 15:21 | XMS_ITS | Clinical Summary ---
Author Organization 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 Note: lower back-bx done [address] Alfred light Plan of Treatment No Plan of Treatment Recorded Assessments Includes: Assessments from this encounter No Assessments Recorded Medical Equipment - Implanted Devices Includes: Current Devices No Medical Equipment Recorded Medications Includes: Medications discussed during this encounter and other current Medications Current Medications (continue as prescribed) Norethindrone Acet-Ethinyl E st 1-20 MG-MCG Oral Tablet 09/13/2023 Provider: MIA Diaz Diagnosis: One tablet daily Last Documented On 3 12:16PM By MIA LYNN IVONNE-BC ; [facility] Past Medications on file Fluconazole 150 MG Oral Tablet 11/17/2023 - 11/19/2023 Provider: HANNAH KAY RN IVONNE BC Diagnosis: Acute vaginitis as directed take one tablet today and repeat in 3 days Last Documented On 3 2:35PM By HANNAH RECINOS ; [facility] metroNIDAZOLE 500 MG Oral Tablet 08/25/2022 - 09/01/2022 Provider: HANNAH KAY RN IVONNE Diagnosis: Acute vaginitis One tablet twice a day ONE T WICE DAILY WITH FOOD NO ETOH Last Documented On 2 7:39AM By HANNAH KAY ABE ; [facility] metroNIDAZOLE 0.75% Vaginal Gel 08/19/2022 - 08/24/2022 Provider: HANNAH KAY RN IVONNE BC Diagnosis: Acute vaginitis as directed 1 MAGALY IN VAGINA EVERY NIGHT X 5 Last Documented On 2 1:56PM By HANNAH KAY ABE ; [facility] Flagyl 500MG Oral Tablet 07/19/2017 - 07/26/2017 Provi princess: MIA LYNN IVONNE- Diagnosis: One tablet twice a day Last Documented On 7 2:40PM By MIA LYNN FREDY ; [facility] Medications Administered Includes: Administered Medications from this encounter No Administered Medications Recorded Results Includes: Results discussed during this encounter No Results Recorded For Specified Dates History of Present Illness Includes: History of Present Illness from this encounter JAMAL SANTILLAN is a 53 year old female. [facility] name[facility]. Social History Description Last Updated Not using alcohol 11/11/2023 Last Documented On 4 11:16AM ; [facility] Sexually active with 1 partn ers in the last year , control pills 11/11/2023 Last Documented On 4 11:16AM ; [facility] Tobacco non-user 08/14/2022 Last Documented On 4 11:16AM ; [facility] Not using drugs 08/13/2021 Last Documented On 4 11:16AM ; [facility] Smoking Status Unknown Procedures and Surgical History Surgical History Last Updated Previous colposcopy 202008/14/2022 Last Documented On 4 11:16AM ; [facility] History of appendectomy 08/13/2021 Last Documented On 4 11:16AM ; [facility] Surgical / procedural histor y oral surgery ~Deep tissue removed for mole on lower left back 08/13/2021 Last Documented On 4 11:16AM ; [facility] Medical History Includes: Medical History addressed during this encounter Description Last Updated History of diaignostic fiberoptic colono scopy 04/08/2022 11/11/2023 Last Documented On 4 11:16AM ; [facility] History of screening mammogram was perfo rmed 10/27/2022 11/11/2023 Last Documented On 4 11:16AM ; [facility] LMP: 10/20/2023 11/11/2023 Last Documented On 4 11:16AM ; [facility] Aborta 1 08/13/2021 Last Documented On 4 11:16AM ; [facility] Cancer 08/13/2021 Last Documented On 4 11:16AM ; [facility] Contraception: loloestrin 08/13/2021 Last Documented On 4 11:16AM ; [facility] 1 08/13/2021 Last Documented On 4 11:16AM ; [facility] History of acute bronchitis monitored by PCP 08/13/2021 Last Documented On 4 11:16AM ; [facility] History of cervical dysplasia 2 COL PO LGSIL 08/13/2021 Last Documented On 4 11:16AM ; [facility] History of human papilloma virus infecti on 08/13/2021 Last Documented On 4 11:16AM ; [facility] Sexually active 08/13/2021 Last Documented On 4 11:16AM ; [facility] Family History Includes: Family History addressed during this encounter Description Last Updated Family history reviewed - unchanged [facility] e last visit 11/11/2023 Last Documented On 4 11:16AM ; [facility] Maternal aunt's history of m alignant female breast neoplasm (2) maternal aunts 08/08/2020 Last Documented On 4 11:16AM ; [facility] Maternal history of hypertension mother 08/08/2020 Last Documented On 4 11:16AM ; [facility] Maternal uncle's history of diabetes lisbet litus maternal uncle 08/08/2020 Last Documented On 4 11:16AM ; [facility] Paternal grandfather's history of family history of heart disease pgf 08/08/2020 Last Documented On 11:16AM ; [facility] Review of Systems Includes: Review of [...] Location Date Check-In Time Check-Out Time Diagnosis * [facility]/12/[facility] 11:16AM 11:59PM Insurance Includes: Active Insurance Policies Plan Name Member ID Group # Subscriber Relationship Effect alicja Dates 1 - [facility] [id number] DEONDRE SANTILLAN S elf Clinical Notes Includes: Clinical Notes from this encounter * Progress note Date Encounter Last Documented by 01/12/2024 * PHONE CALL Last documented on 01/12/2024; 11:20 AM, [facility] Active Problems & Conditions - Compound Nevus - lower back-bx done [address] Jules Chief Complaint Phone Call - Chief Concern: Reason for call: Patient called and said that she experiencing menopause symptoms such as hot flashes and night sweats. She is asking if you can send rx to [facility]. She is also asking that the medication be one that does not increase the risk of cancer as she is high risk already. pt phone # for return call: [phone] Date/Initials: 01/12/24 . History of Present Illness DEONDRE SANTILLAN is a 53 year old female. [facility] name[facility]. Current Medication - Norethindrone Acet-Ethinyl Est 1-20 [...] aunts Maternal uncle's: Diabetes mellitus maternal uncle Plan StartCited - Other PHY ORDER/COMMENT She will need to schedule consult for this. EndCited
--- OUTSIDE RECORDS SUMMARY | 2025-01-11 15:21 | XMS_ITS | Clinical Summary ---
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 [...] 3 12:16PM By MIA LYNN IVONNE-BC ; [facility] Past Medications on file Fluconazole 150 MG Oral Tablet 11/17/2023 - 11/19/2023 Provider: HANNAH KAY RN IVONNE BC Diagnosis: Acute vaginitis as directed take one tablet today and repeat in 3 days Last Documented On 3 2:35PM By HANNAH RECINOS ; [facility] metroNIDAZOLE 500 MG Oral Tablet 08/25/2022 - 09/01/2022 Provider: HANNAH KAY RN IVONNE BC Diagnosis: Acute vaginitis One tablet twice a day ONE T WICE DAILY WITH FOOD NO ETOH Last Documented On 2 7:39AM By HANNAH KAY ABE ; [facility] metroNIDAZOLE 0.75% Vaginal Gel 08/19/2022 - 08/24/2022 Provider: HANNAH KAY RN IVONNE BC Diagnosis: Acute vaginitis as directed 1 MAGALY IN VAGINA EVERY NIGHT X 5 Last Documented On 2 1:56PM By HANNAH RECINOS ; [facility] Flagyl 500MG Oral Tablet 07/19/2017 - 07/26/2017 Provi princess: MIA LAMA Diagnosis: One tablet twice a day Last Documented On 7 2:40PM By MIA LYNN FREDY ; [facility] Medications Administered Includes: Administered Medications from this [...] Previous colposcopy 202008/14/2022 Last Documented On 2 4:28PM ; [facility] History of appendectomy 08/13/2021 Last Documented On 2 4:28PM ; [facility] Surgical / procedural histor y oral surgery ~Deep tissue removed for mole on lower left back 08/13/2021 Last Documented On 2 4:28PM ; [facility] Medical History Includes: Medical History addressed during this encounter Description Last Updated History of screening mammogram was perfo rmed 08/20/2020 11/11/2023 Last Documented On 2 4:28PM ; [facility] LMP: 07/09/2022 11/11/2023 Last Documented On 2 4:28PM ; [facility] Last pap smear date 08/09/2020 08/13/2021 Last Documented On 2 4:28PM ; [facility] Aborta 1 08/13/2021 Last Documented On 2 4:28PM ; [facility] Cancer 08/13/2021 Last Documented On 2 4:28PM ; [facility] Contraception: loloestrin 08/13/2021 Last Documented On 2 4:28PM ; [facility] 1 08/13/2021 Last Documented On 2 4:28PM ; [facility] History of acute bronchitis monitored by PCP 08/13/2021 Last Documented On 2 4:28PM ; [facility] History of cervical dysplasia 12-31-08 COL PO LGSIL 08/13/2021 Last Documented On 2 4:28PM ; [facility] History of human papilloma virus infecti on 08/13/2021 Last Documented On 2 4:28PM ; [facility] History of Pap smear done 06/24/201707/24 Last Documented On 2 4:28PM ; [facility] Result: normal 08/13/2021 Last Documented On 2 4:28PM ; [facility] Sexually active 08/13/2021 Last Documented On 2 4:28PM ; [facility] Result: normal 08/08/2020 Last Documented On 2 4:28PM ; [facility] Family History Includes: Family History addressed during this encounter Description Last Updated Maternal aunt's history of m alignant female breast neoplasm (2) maternal aunts 08/08/2020 Last Documented On 2 4:28PM ; [facility] Maternal history of hypertension mother 08/08/2020 Last Documented On 2 4:28PM ; [facility] Maternal uncle's history of diabetes lisbet litus maternal uncle 08/08/2020 Last Documented On 2 4:28PM ; [facility] Paternal grandfather's history of family history of heart disease pgf 08/08/2020 Last Documented On 2 4:28PM ; [facility] Family history unchanged 08/03/2019 Last Documented On 2 4:28PM ; [facility] Family history of heart disease fathers side 03/02/2013 Last Documented On 2 4:28PM ; [facility] Family history of malignant female breas t neoplasm (2) maternal aunts 03/02/2013 Last Documented On 2 4:28PM ; [facility] Spouse name: mikki 01/19/2011 Last Documented On 2 4:28PM ; [facility] Family history of hypertension mother Last Documented On 2 4:28PM ; [facility] Family history of diabetes mellitus mate rnal uncle 12/20/2009 Last Documented On 2 4:28PM ; [facility] Family history of Cancer 11/04/2009 Last Documented On 2 4:28PM ; [facility] Family medical history of high blood pre ssure 11/04/2009 Last Documented On 2 4:28PM ; [facility] Family medical history of High Cholester ol 11/04/2009 Last Documented On 2 4:28PM ; [facility] Review of Systems Includes: Review of [...] Time Check-Out Time Diagnosis * PHONE CALL HANNAH KAY RN [facility] 08/24/2022 4:27PM 11:59PM Insurance Includes: Active Insurance Policies Plan Name Member ID Group # Subscriber Relationship Effect alicja Dates 1 - [facility] [id number] DENODRE bergeron Clinical Notes Includes: Clinical Notes from this encounter No Clinical Notes Recorded
--- OUTSIDE RECORDS SUMMARY | 2025-01-11 15:21 | XMS_ITS ---
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 Alfred light Plan of Treatment Findings Encounter Date Ordered Clinical summary pro vided to patient WELL WOMAN - ESTABLISHED PT with MIAOMEGA LYNN WHNP-BC 11/11/2023 Last Documented On 3 3:40PM ; [facility] Ordered follow-up visit 1 ye ar or as needed WELL WOMAN - ESTABLISHED PT with MIAOMEGA LYNN WHNP-BC 11/11/2023 Last Documented On 3 3:40PM ; [facility] Ordered Clinical summary pro vided to patient WELL WOMAN - ESTABLISHED PT with MIAOMEGA LYNN WHNP-BC 08/14/2022 Last Documented On 2 1:46PM ; [facility] Ordered follow-up visit 1 ye ar or as needed WELL WOMAN - ESTABLISHED PT with MIAOMEGA LYNN WHNP-BC 08/14/2022 Last Documented On 2 1:46PM ; [facility] Ordered Clinical summary pro vided to patient WELL WOMAN - ESTABLISHED PT with MIAOMEGA LYNN WHNP-BC 08/13/2021 Last Documented On 1 9:55AM ; [facility] Ordered follow-up visit 1 ye ar or as needed WELL WOMAN - ESTABLISHED PT with MIA LYNN WHNP-BC 08/13/2021 Last Documented On 1 9:55AM ; [facility] Ordered Clinical summary pro vided to patient WELL WOMAN EXAM with MIA LYNN WHNP-BC 08/08/2020 Last Documented On 0 10:20AM ; [facility] Ordered follow-up visit 1 ye ar or as needed WELL WOMAN EXAM with MIA LYNN WHNP-BC 08/08/2020 Last Documented On 0 10:20AM ; [facility] Ordered Clinical summary pro vided to patient WELL WOMAN EXAM with MIA LYNN WHNP-BC 08/03/2019 Last Documented On 9 10:08AM ; [facility] Ordered follow-up visit 1 ye ar or as needed WELL WOMAN EXAM with MIA LYNN WHNP-BC 08/03/2019 Last Documented On 9 10:08AM ; [facility] Ordered Clinical summary pro vided to patient ANNUAL EDGE FINISHER EXAM with MIA LYNN WHNP-BC 07/21/2018 Last Documented On 8 8:16AM ; [facility] Ordered follow-up visit 1 ye ar or as needed ANNUAL EDGE FINISHER EXAM with MIA LYNN WHNP-BC 07/21/2018 Last Documented On 8 8:16AM ; [facility] Ordered Clinical summary pro vided to patient ANNUAL EDGE FINISHER EXAM with MIA LYNN WHNP-BC 07/14/2017 Last Documented On 7 11:09AM ; [facility] Ordered follow-up visit 1 ye ar or as needed ANNUAL EDGE FINISHER EXAM with MIA LYNN WHNP-BC 07/14/2017 Last Documented On 7 11:09AM ; [facility] Ordered Clinical summary pro vided to patient ANNUAL EDGE FINISHER EXAM with MIA LYNN WHNP-BC 06/18/2016 Last Documented On 6 3:56PM ; [facility] Ordered follow-up visit 1 ye ar or as needed ANNUAL EDGE FINISHER EXAM with MIA LYNN WHNP-BC 06/18/2016 Last Documented On 6 3:56PM ; [facility] Ordered Clinical summary pro vided to patient PROP AND EFFECTS DESIGNER EXAM with MIA LYNN NP-BC 03/25/2015 Last Documented On 5 9:20AM ; [facility] Ordered follow-up visit 1 ye ar or as needed PROP AND EFFECTS DESIGNER EXAM with MIA LYNN NP-BC 03/25/2015 Last Documented On 5 9:20AM ; [facility] Ordered Clinical summary pro vided to patient ANNUAL EDGE FINISHER EXAM with MIA LYNN NP-BC 03/15/2014 Last Documented On 4 11:01AM ; [facility] Ordered follow-up visit 1 ye ar or as needed ANNUAL EDGE FINISHER EXAM with MIA LYNN NP-BC 03/15/2014 Last Documented On 4 11:01AM ; [facility] Ordered Clinical summary pro vided to patient PROP AND EFFECTS DESIGNER EXAM with MIA LYNN NP-BC 03/02/2013 Last Documented On 3 4:26PM ; [facility] Ordered follow-up visit 1 ye ar or as needed PROP AND EFFECTS DESIGNER EXAM with MAI LYNN NP-BC 03/02/2013 Last Documented On 3 4:26PM ; [facility] Vonda is agreeable to lower the dose of her ocp with next pill pack and get a mammogram burt. 2 samples of lo loestrin were given today and no further refills to be given until mammogram updated. She will also get a lipid panel when fasting at [facility] in [place]. She is still legally from her , but now in a sexual relationship with a new partner. She is seeing a counselor and doing well with this. She agrees to ct/ng today, but declines std blood work PROP AND EFFECTS DESIGNER EXAM with MIA LYNN NP-BC 01/27/2012 Last Documented On 2 9:18AM ; [facility] Ordered follow-up visit 1 ye ar or as needed PROP AND EFFECTS DESIGNER EXAM with MIA LYNN NP-BC 01/27/2012 Last Documented On 2 9:18AM ; [facility] Ordered follow-up visit 1 ye ar or as needed PROP AND EFFECTS DESIGNER EXAM with MIA LYNN NP-BC 01/19/2011 Last Documented On 1 8:44AM ; [facility] Instructions to patient Instructions for patient : B reast Self Exam discussed Last Documented On 3 3:14PM ; [facility] Instructions for patient : B reast Self Exam discussed Last Documented On 2 1:29PM ; [facility] Instructions for patient : B reast Self Exam discussed Last Documented On 1 9:36AM ; [facility] Colonoscopy Handout given to patient Last Documented On 1 9:36AM ; [facility] Instructions for patient : B reast Self Exam discussed Last Documented On 0 10:00AM ; [facility] Instructions for patient : B reast Self Exam discussed Last Documented On 9 9:44AM ; [facility] Instructions for patient : K eep the area around the vulva dry. Allow the area to have exposure to air. Avoid irritants such as fabric softeners and perfumed soaps.~ Last Documented On 9 10:06AM ; [facility] Advised d/c scented bath pro ducts Last Documented On 9 10:06AM ; [facility] Instructions for patient : B reast Self Exam discussed Last Documented On 8 7:58AM ; [facility] Instructions for patient : B reast Self Exam discussed Last Documented On 7 10:52AM ; [facility] Instructions for patient : B reast Self Exam discussed Last Documented On 6 3:27PM ; [facility] Instructions for patient : B reast Self Exam discussed Last Documented On 5 9:00AM ; [facility] Safe sex counseling Last Documented On 5 9:20AM ; [facility] Instructions for patient : B reast Self Exam discussed Last Documented On 4 10:46AM ; [facility] Instructions for patient : K eep the area around the vulva dry. Allow the area to have exposure to air. Avoid irritants such as fabric softeners and perfumed soaps.~ Last Documented On 4 10:56AM ; [facility] Advised d/c scented bath pro ducts Last Documented On 4 10:56AM ; [facility] Instructions for patient : B reast Self Exam discussed Last Documented On 3 3:57PM ; [facility] Instructions for patient : B reast Self Exam discussed Last Documented On 2 8:45AM ; [facility] Instructions for patient : K eep the area around the vulva dry. Allow the area to have exposure to air. Avoid irritants such as fabric softeners and perfumed soaps.~ Last Documented On 2 9:16AM ; [facility] Lose weight Last Documented On 2 8:49AM ; [facility] Advised d/c scented bath pro ducts Last Documented On 2 9:16AM ; [facility] Instructions for patient : B reast Self Exam discussed Last Documented On 1 8:17AM ; [facility] Instructions for patient : B reast Self Exam discussed Last Documented On 0 11:50AM ; [facility] Lose weight Last Documented On 0 11:50AM ; [facility] Education and Decision Aids were provided during visit for: Patient Education: Daily meena cium and vitamin D Last Documented On 3 3:14PM ; [facility] Patient Education: weight be aring exercise Last Documented On 3 3:14PM ; [facility] Patient Education: Daily meena cium and vitamin D Last Documented On 2 1:29PM ; [facility] Patient Education: weight be aring exercise Last Documented On 2 1:29PM ; [facility] Patient Education: Daily meena cium and vitamin D Last Documented On 1 9:36AM ; [facility] Patient Education: weight be aring exercise Last Documented On 1 9:36AM ; [facility] Patient Education: Daily meena cium and vitamin D Last Documented On 0 10:00AM ; [facility] Patient Education: weight be aring exercise Last Documented On 0 10:00AM ; [facility] Patient Education: Daily meena cium and vitamin D Last Documented On 9 9:44AM ; [facility] Patient Education: weight be aring exercise Last Documented On 9 9:44AM ; [facility] Bacterial Vaginosis Informat ion Sheet Given Last Documented On 9 10:06AM ; [facility] Patient Education: Daily meena cium and vitamin D Last Documented On 8 7:58AM ; [facility] Patient Education: weight be aring exercise Last Documented On 8 7:58AM ; [facility] Patient Education: Daily meena cium and vitamin D Last Documented On 7 10:52AM ; [facility] Patient Education: weight be aring exercise Last Documented On 7 10:52AM ; [facility] Patient Education: Daily meena cium and vitamin D Last Documented On 6 3:27PM ; [facility] Patient Education: weight be aring exercise Last Documented On 6 3:27PM ; [facility] Patient Education: Daily meena cium and vitamin D Last Documented On 5 9:00AM ; [facility] Patient Education: weight be aring exercise Last Documented On 5 9:00AM ; [facility] Patient Education: Daily meena cium and vitamin D Last Documented On 4 10:46AM ; [facility] Patient Education: weight be aring exercise Last Documented On 4 10:46AM ; [facility] Bacterial Vaginosis Informat ion Sheet Given Last Documented On 4 10:56AM ; [facility] Patient Education: Daily meena cium and vitamin D Last Documented On 3 3:57PM ; [facility] Patient Education: weight be aring exercise Last Documented On 3 3:57PM ; [facility] Patient Education: Daily meena cium and vitamin D Last Documented On 2 8:45AM ; [facility] Patient Education: weight be aring exercise Last Documented On 2 8:45AM ; [facility] Bacterial Vaginosis Informat ion Sheet Given Last Documented On 2 9:16AM ; [facility] control consent review ed and signed Last Documented On 2 8:49AM ; [facility] Patient Education: Daily meena cium and vitamin D Last Documented On 1 8:43AM ; [facility] Candidiasis Vulvovaginitis I nformation Sheet Given Last Documented On 1 8:43AM ; [facility] Patient education : Last Documented On 0 11:50AM ; [facility] Patient Education: weight be aring exercise Last Documented On 0 11:50AM ; [facility] Assessments Includes: Assessments for all patient encounters Findings Encounter Date Vaginitis CHART UPDATE with HANNAH KAY RN [facility] 11/17/2023 Last Documented On 3 2:34PM ; [facility] NORMAL FEMALE EXAM WELL WOMAN - ESTABLISHED PT w rakesh LYNN [facility] 11/11/2023 Last Documented On 3 3:40PM ; [facility] Screening Malig. Neoplasm Rectum WELL WO MAN - ESTABLISHED PT with MIA LYNN [facility] 11/11/2023 Last Documented On 3 3:40PM ; [facility] Vaginitis CHART UPDATE with HANNAH KAY RN [facility] 08/19/2022 Last Documented On 2 1:56PM ; [facility] NORMAL FEMALE EXAM WELL WOMAN - ESTABLISHED PT w rakesh LYNN [facility] 08/14/2022 Last Documented On 2 1:46PM ; [facility] Screening Malig. Neoplasm Rectum WELL WO MAN - ESTABLISHED PT with MIA LYNN [facility] 08/14/2022 Last Documented On 2 1:46PM ; [facility] NORMAL FEMALE EXAM WELL WOMAN - ESTABLISHED PT w rakesh LYNN [facility] 08/13/2021 Last Documented On 1 9:55AM ; [facility] Screening Malig. Neoplasm Rectum WELL WO MAN - ESTABLISHED PT with MIA LYNN [facility] 08/13/2021 Last Documented On 1 9:55AM ; [facility] NORMAL FEMALE EXAM WELL WOMAN EXAM with MIA LYNN [facility] 08/08/2020 Last Documented On 0 10:20AM ; [facility] Screening Malig. Neoplasm Rectum WELL WO MAN EXAM with MIAOMEGA LYNN NP-BC 08/08/2020 Last Documented On 0 10:20AM ; [facility] NORMAL FEMALE EXAM WELL WOMAN EXAM with MIAOMEGA LYNN NP-BC 08/03/2019 Last Documented On 9 10:08AM ; [facility] Screening Malig. Neoplasm Rectum WELL WO MAN EXAM with MIAOMEGA LYNN NP-BC 08/03/2019 Last Documented On 9 10:08AM ; [facility] Vulvovaginitis WELL WOMAN EXAM with MIAOMEGA WANG PALAK NP-BC 08/03/2019 Last Documented On 9 10:08AM ; [facility] NORMAL FEMALE EXAM ANNUAL EDGE FINISHER EXAM with MIAOMEGA LYNN NP-BC 07/21/2018 Last Documented On 8 8:16AM ; [facility] Screening Malig. Neoplasm Rectum ANNUAL EDGE FINISHER EXAM with MIAOMEGA LYNN NP-BC 07/21/2018 Last Documented On 8 8:16AM ; [facility] NORMAL FEMALE EXAM ANNUAL EDGE FINISHER EXAM with MIAOMEGA LYNN NP-BC 07/14/2017 Last Documented On 7 11:09AM ; [facility] Screening Malig. Neoplasm Rectum ANNUAL EDGE FINISHER EXAM with MIAOMEGA LYNN NP-BC 07/14/2017 Last Documented On 7 11:09AM ; [facility] NORMAL FEMALE EXAM ANNUAL EDGE FINISHER EXAM with MIAOMEGA LYNN NP-BC 06/18/2016 Last Documented On 6 3:56PM ; [facility] Screening Malig. Neoplasm Rectum ANNUAL EDGE FINISHER EXAM with MIAOMEGA LYNN NP-BC 06/18/2016 Last Documented On 6 3:56PM ; [facility] NORMAL FEMALE EXAM PROP AND EFFECTS DESIGNER EXAM with MIA LYNN [facility] 03/25/2015 Last Documented On 5 9:20AM ; [facility] Screening Malig. Neoplasm Rectum PROP AND EFFECTS DESIGNER EXAM with Joe LYNN NP-BC 03/25/2015 Last Documented On 5 9:20AM ; [facility] NORMAL FEMALE EXAM ANNUAL EDGE FINISHER EXAM with MIAOMEGA LYNN WHNP-BC 03/15/2014 Last Documented On 4 11:01AM ; [facility] Screening Malig. Neoplasm Rectum ANNUAL EDGE FINISHER EXAM with MIA LYNN [facility] 03/15/2014 Last Documented On 4 11:01AM ; [facility] Vulvovaginitis ANNUAL EDGE FINISHER EXAM with MIAOMEGA WANG PALAK [facility] 03/15/2014 Last Documented On 4 11:01AM ; [facility] NORMAL FEMALE EXAM PROP AND EFFECTS DESIGNER EXAM with MIA LYNN [place] [facility] 03/02/2013 Last Documented On 3 4:26PM ; [facility] Screening Malig. Neoplasm Rectum PROP AND EFFECTS DESIGNER EXAM with Joe LYNN [facility] 03/02/2013 Last Documented On 3 4:26PM ; [facility] NORMAL FEMALE EXAM PROP AND EFFECTS DESIGNER EXAM with MIA LYNN [place] [facility]-BC 01/27/2012 Last Documented On 2 9:18AM ; [facility] Screening Malig. Neoplasm Rectum PROP AND EFFECTS DESIGNER EXAM with Joe LYNN [facility] 01/27/2012 Last Documented On 2 9:18AM ; [facility] Vulvovaginitis PROP AND EFFECTS DESIGNER EXAM with MIA LYNN [facility] -BC 01/27/2012 Last Documented On 2 9:18AM ; [facility] Normal routine history and physical PROP AND EFFECTS DESIGNER EXAM wit h MIA LYNN [facility]- 01/19/2011 Last Documented On 1 8:44AM ; [facility] Routine pelvic exam PROP AND EFFECTS DESIGNER EXAM with MIA LYNN [facility]- 01/19/2011 Last Documented On 1 8:44AM ; [facility] HX of LGSIL RE-PAP with KAREN Gruber [facility] 06/19/2010 Last Documented On 0 10:01AM ; [facility] Routine pelvic exam PROP AND EFFECTS DESIGNER EXAM with KAREN CASAS [facility] 12/20/2009 Last Documented On 0 12:08PM ; [facility] Instructions Includes: Instructions for all patient encounters Instructions to patient Instructions for patient : B reast Self Exam discussed Last Documented On 3 3:14PM ; [facility] Instructions for patient : B reast Self Exam discussed Last Documented On 2 1:29PM ; [facility] Instructions for patient : B reast Self Exam discussed Last Documented On 1 9:36AM ; [facility] Colonoscopy Handout given to patient Last Documented On 1 9:36AM ; [facility] Instructions for patient : B reast Self Exam discussed Last Documented On 0 10:00AM ; [facility] Instructions for patient : B reast Self Exam discussed Last Documented On 9 9:44AM ; [facility] Instructions for patient : K eep the area around the vulva dry. Allow the area to have exposure to air. Avoid irritants such as fabric softeners and perfumed soaps.~ Last Documented On 9 10:06AM ; [facility] Advised d/c scented bath pro ducts Last Documented On 9 10:06AM ; [facility] Instructions for patient : B reast Self Exam discussed Last Documented On 8 7:58AM ; [facility] Instructions for patient : B reast Self Exam discussed Last Documented On 7 10:52AM ; [facility] Instructions for patient : B reast Self Exam discussed Last Documented On 6 3:27PM ; [facility] Instructions for patient : B reast Self Exam discussed Last Documented On 5 9:00AM ; [facility] Safe sex counseling Last Documented On 5 9:20AM ; [facility] Instructions for patient : B reast Self Exam discussed Last Documented On 4 10:46AM ; [facility] Instructions for patient : K eep the area around the vulva dry. Allow the area to have exposure to air. Avoid irritants such as fabric softeners and perfumed soaps.~ Last Documented On 4 10:56AM ; [facility] Advised d/c scented bath pro ducts Last Documented On 4 10:56AM ; [facility] Instructions for patient : B reast Self Exam discussed Last Documented On 3 3:57PM ; [facility] Instructions for patient : B reast Self Exam discussed Last Documented On 2 8:45AM ; [facility] Instructions for patient : K eep the area around the vulva dry. Allow the area to have exposure to air. Avoid irritants such as fabric softeners and perfumed soaps.~ Last Documented On 2 9:16AM ; [facility] Lose weight Last Documented On 2 8:49AM ; [facility] Advised d/c scented bath pro ducts Last Documented On 2 9:16AM ; [facility] Instructions for patient : B reast Self Exam discussed Last Documented On 1 8:17AM ; [facility] Instructions for patient : B reast Self Exam discussed Last Documented On 0 11:50AM ; [facility] Lose weight Last Documented On 0 11:50AM ; [facility] Education and Decision Aids were provided during visit for: Patient Education: Daily meena cium and vitamin D Last Documented On 3 3:14PM ; [facility] Patient Education: weight be aring exercise Last Documented On 3 3:14PM ; [facility] Patient Education: Daily meena cium and vitamin D Last Documented On 2 1:29PM ; [facility] Patient Education: weight be aring exercise Last Documented On 2 1:29PM ; [facility] Patient Education: Daily meena cium and vitamin D Last Documented On 1 9:36AM ; [facility] Patient Education: weight be aring exercise Last Documented On 1 9:36AM ; [facility] Patient Education: Daily meena cium and vitamin D Last Documented On 0 10:00AM ; [facility] Patient Education: weight be aring exercise Last Documented On 0 10:00AM ; [facility] Patient Education: Daily meena cium and vitamin D Last Documented On 9 9:44AM ; [facility] Patient Education: weight be aring exercise Last Documented On 9 9:44AM ; [facility] Bacterial Vaginosis Informat ion Sheet Given Last Documented On 9 10:06AM ; [facility] Patient Education: Daily meena cium and vitamin D Last Documented On 8 7:58AM ; [facility] Patient Education: weight be aring exercise Last Documented On 8 7:58AM ; [facility] [facility] Patient Education: Daily meena cium and vitamin D Last Documented On 7 10:52AM ; [facility] Patient Education: weight be aring exercise Last Documented On 7 10:52AM ; [facility] Patient Education: Daily meena cium and vitamin D Last Documented On 6 3:27PM ; [facility] Patient Education: weight be aring exercise Last Documented On 6 3:27PM ; [facility] Patient Education: Daily meena cium and vitamin D Last Documented On 5 9:00AM ; [facility] Patient Education: weight be aring exercise Last Documented On 5 9:00AM ; [facility] Patient Education: Daily meena cium and vitamin D Last Documented On 4 10:46AM ; [facility] Patient Education: weight be aring exercise Last Documented On 4 10:46AM ; [facility] Bacterial Vaginosis Informat ion Sheet Given Last Documented On 4 10:56AM ; [facility] Patient Education: Daily meena cium and vitamin D Last Documented On 3 3:57PM ; [facility] Patient Education: weight be aring exercise Last Documented On 3 3:57PM ; [facility] Patient Education: Daily meena cium and vitamin D Last Documented On 2 8:45AM ; [facility] Patient Education: weight be aring exercise Last Documented On 2 8:45AM ; [facility] Bacterial Vaginosis Informat ion Sheet Given Last Documented On 2 9:16AM ; [facility] control consent review ed and signed Last Documented On 2 8:49AM ; [facility] Patient Education: Daily meena cium and vitamin D Last Documented On 1 8:43AM ; [facility] Candidiasis Vulvovaginitis I nformation Sheet Given Last Documented On 1 8:43AM ; [facility] Patient education : Last Documented On 0 11:50AM ; [facility] Patient Education: weight be aring exercise Last Documented On 0 11:50AM ; [facility] Medical Equipment - Implanted Devices Includes: Current and historical Devices No Medical Equipment Recorded Medications Includes: Current and historical Medications Current Medications (continue as prescribed) Norethindrone Acet-Ethinyl E st 1-20 MG-MCG Oral Tablet 09/13/2023 Provider: MIA Diaz Diagnosis: One tablet daily Last Documented On 3 12:16PM By MIA RECINOS ; [facility] Past Medications on file Fluconazole 150 MG Oral Tablet 11/17/2023 - 11/19/2023 Provider: HANNAH CHONG Diagnosis: Acute vaginitis as directed take one tablet today and repeat in 3 days Last Documented On 3 2:35PM By HANNAH RECINOS ; [facility] metroNIDAZOLE 500 MG Oral Tablet 08/25/2022 - 09/01/2022 Provider: HANNAH CHONG Diagnosis: Acute vaginitis One tablet twice a day ONE T WICE DAILY WITH FOOD NO ETOH Last Documented On 2 7:39AM By HANNAH RECINOS ; [facility] metroNIDAZOLE 0.75% Vaginal Gel 08/19/2022 - 08/24/2022 Provider: HANNAH CHONG Diagnosis: Acute vaginitis as directed 1 MAGALY IN VAGINA EVERY NIGHT X 5 Last Documented On 2 1:56PM By HANNAH RECINOS ; [facility] Norethindrone Acet-Ethinyl Est 1-20 MG-MCG Oral Tablet 08/14/2022 - 09/13/2023 Provider: MIA RECINOS Diagnosis: One tablet daily Last Documented On 3 12:16PM By MIA RECINOS ; [facility] Loestrin 1/20 (21) 1-20 MG-MCG Oral Tablet 04/22/2022 - 08/14/2022 Provider: MIA LYNN ASSET PROTECTION REPRESENTATIVE-BC Diagnosis: One tablet daily Last Documented On 08/14/2022 1:30PM By Thuy ROBLEDO ; [facility] Norethindrone Acet-Ethinyl Est 1-20 MG-MCG Oral Tablet 03/22/2022 - 08/14/2022 Provider: MIA TRUONGNP-BC Diagnosis: Last Documented On 2 1:46PM By MIA RECINOS ; [facility] Loestrin 1/20 (21) 1-20 MG-MCG Oral Tablet 08/13/2021 - 04/22/2022 Provider: MIA LYNN ASSET PROTECTION REPRESENTATIVE-BC Diagnosis: One tablet daily Last Documented On 2 2:05PM By MIA RECINOS ; [facility] Loestrin 1/20 (21) 1-20 MG-MCG Oral Tablet 07/16/2021 - 08/13/2021 Provider: MIA LYNN ASSET PROTECTION REPRESENTATIVE-BC Diagnosis: One tablet daily Last Documented On 1 9:47AM By MIA RECINOS ; [facility] Loestrin 1/20 (21) 1-20 MG-MCG Oral Tablet 12/16/2020 - 08/13/2021 Provider: Diagnosis: Called in to pharmacy. Last Documented On 08/13/2021 9:41AM By Maura Pascual MA ; [facility] Bactrim DS 800-160 MG Oral Tablet 12/05/2020 - 021 Provider: Diagnosis: Last Documented On 08/13/2021 9:41AM By Maura Pascual MA ; [facility] Lo Loestrin Fe 1 MG-10 MCG / 10 MCG Oral Tablet 08/08/2020 - 12/16/2020 Provider: MIA LYNN ASSET PROTECTION REPRESENTATIVE-BC Diagnosis: One tablet daily Last Documented On 12/16/2020 2:21PM By Maura Pascual MA ; [facility] Lo Loestrin Fe 1 MG-10 MCG / 10 MCG Oral Tablet 07/22/2020 - 08/08/2020 Provider: MIA LYNN ASSET PROTECTION REPRESENTATIVE-BC Diagnosis: One tablet daily Last Documented On 0 10:19AM By MIA RECINOS ; [facility] Lo Loestrin Fe 1 MG-10 MCG / 10 MCG Oral Tablet 07/22/2020 - 08/08/2020 Provider: Diagnosis: phoned 1 mo into pharmacy/ Last Documented On 0 10:07AM By ROSAURA ROBLEDO ; [facility] Lo Loestrin Fe 1 MG-10 MCG / 10 MCG Oral Tablet 11/01/2019 - 07/22/2020 Provider: MIA TRUONG ASSET PROTECTION REPRESENTATIVE-BC Diagnosis: One tablet daily Last Documented On 0 9:53AM By MIA RECINOS ; [facility] Lo Loestrin Fe 1 MG-10 MCG / 10 MCG Oral Tablet 08/03/2019 - 11/01/2019 Provider: MIA TRUONG ASSET PROTECTION REPRESENTATIVE-BC Diagnosis: One tablet daily Last Documented On 9 10:34AM By MIA RECINOS ; [facility] Flagyl 500 MG Oral Tablet 08/03/2019 - 08/08/2020 Prov ider: MIA TRUONGNP-BC Diagnosis: One tablet twice a day Last Documented On 0 10:07AM By ROSAURA ROBLEDO ; [facility] Lo Loestrin Fe 1 MG-10 MCG /10 MCG Oral Tablet 09/27/2018 - 08/03/2019 Provider: MIA TRUONG ASSET PROTECTION REPRESENTATIVE-BC Diagnosis: One tablet daily Last Documented On 9 10:05AM By MIA RECINOS ; [facility] Lo Loestrin Fe 1 MG-10 MCG /10 MCG Oral Tablet 07/21/2018 - 09/27/2018 Provider: MIA TRUONG ASSET PROTECTION REPRESENTATIVE-BC Diagnosis: One tablet daily Last Documented On 8 5:16PM By MIA RECINOS ; [facility] Lo Loestrin Fe 1 MG-10 MCG /10 MCG Oral Tablet 05/02/2018 - 07/21/2018 Provider: MIA TRUONG ASSET PROTECTION REPRESENTATIVE-BC Diagnosis: One tablet daily Last Documented On 8 8:15AM By MIA RECINOS ; [facility] Flagyl 500MG Oral Tablet 07/19/2017 - 07/26/2017 Provi princess: MIA TRUONGNP-BC Diagnosis: One tablet twice a day Last Documented On 7 2:40PM By MIA CHONG-JO ; [facility] Lo Loestrin Fe 1 MG-10 MCG /10 MCG Oral Tablet 07/14/2017 - 05/02/2018 Provider: MIA RECINOS Diagnosis: Encounter for surveillance of contraceptives, unspecified One tablet daily Last Documented On 8 1:29PM By MIA RECINOS ; [facility] ChoiceFul Multivitamin Oral Capsule 07/14/2017 - 07/21 Provider: Diagnosis: Last Documented On 07/21/2018 8:05AM By RSOAURA ROBLEDO ; [facility] Lo Loestrin Fe 1 MG-10 MCG /10 MCG Oral Tablet 05/25/2017 - 07/14/2017 Provider: MIA RECINOS Diagnosis: Encounter for surveillance of contraceptives, unspecified One tablet daily Last Documented On 7 11:08AM By MIA RECINOS ; [facility] Lo Loestrin Fe 1 MG-10 MCG / 10 MCG Tablet 06/18/2016 - 05/25/2017 Provider: MIA RECINOS Diagnosis: Encounter for surveillance of contraceptives, unspecified One tablet daily Last Documented On 7 5:57PM By MIA RECINOS ; [facility] Lo Loestrin Fe 1 MG-10 MCG / 10 MCG Tablet 04/16/2016 - 06/18/2016 Provider: MIA RECINOS Diagnosis: Encounter for surveillance of contraceptives, unspecified One tablet daily - no furthe r refills until appt. !! Last Documented On 6 3:55PM By MIA RECINOS ; [facility] Lo Loestrin Fe 1 MG-10 MCG / 10 MCG Tablet 01/23/2016 - 04/16/2016 Provider: MIA RECINOS Diagnosis: Encounter for surveillance of contraceptives, unspecified One tablet daily Last Documented On 6 7:08AM By MIA RECINOS ; [facility] Lo Loestrin Fe 1 MG-10 MCG / 10 MCG Tablet 03/25/2015 - 01/23/2016 Provider: MIA RECINOS Diagnosis: CONTRACEPT SURVE ILL NOS One tablet daily Last Documented On 6 7:23AM By MIA RECINOS ; [facility] Lo Loestrin Fe 1 MG-10 MCG / 10 MCG Tablet 03/25/2015 - 06/18/2016 Provider: Diagnosis: Last Documented On 6 10:57AM By MIA RECINOS ; [facility] Diflucan 150 MG OR TABS 08/02/2014 - 03/25/2015 Provid er: Diagnosis: 1 po today repeat in 3 days/kk Last Documented On 03/25/2015 9:08AM By ROSAURA ROBLEDO ; [facility] Diflucan 150 MG OR TABS 04/19/2014 - 08/02/2014 Provid er: Diagnosis: repeat in 3 days/kk Last Documented On 4 11:51AM By ROSAURA ROBLEDO ; [facility] Flagyl 500 MG OR TABS 03/15/2014 - 06/18/2016 Provider : MIA RECINOS Diagnosis: VAGINITIS NOS Last Documented On 06/18/2016 3:38PM By ROSAURA ROBLEDO ; [facility] Lo Loestrin Fe 1 MG-10 MCG / 10 MCG OR TABS 03/15/2014 - 03/25/2015 Provider: MIA RECINOS Diagnosis: CONTRACEPT SURVE ILL NOS Last Documented On 5 9:20AM By MIA RECINOS ; [facility] Lo Loestrin Fe 1 MG-10 MCG / 10 MCG OR TABS 02/26/2014 - 03/15/2014 Provider: MIA RECINOS Diagnosis: CONTRACEPT SURVE ILL NOS Last Documented On 4 10:56AM By MIA RECINOS ; [facility] Diflucan 150 MG OR TABS 03/06/2013 - 06/18/2016 Provider: MIA RECINOS Diagnosis: CANDIDAL VULVOVA GINITIS Take one dose po x 1 and rpt. in 3 days Last Documented On 06/18/2016 3:38PM By ROSAURA ROBLEDO ; [facility] Lo Loestrin Fe 1 MG-10 MCG / 10 MCG OR TABS 03/02/2013 - 02/26/2014 Provider: MIA RECINOS Diagnosis: CONTRACEPT SURVE ILL NOS Last Documented On 4 8:46AM By MIA RECINOS ; [facility] Lo Loestrin Fe 1 MG-10 MCG / 10 MCG OR TABS 02/13/2013 - 03/02/2013 Provider: MIA TRUONG ASSET PROTECTION REPRESENTATIVE-BC Diagnosis: NO REFILLS UNTIL APPT.! Last Documented On 3 4:24PM By MIA RECINOS ; [facility] Lo Loestrin Fe 1 MG-10 MCG / 10 MCG OR TABS 06/27/2012 - 02/13/2013 Provider: MIA TRUONG NP-BC Diagnosis: Last Documented On 3 2:34PM By MIA RECINOS ; [facility] Fluconazole 150 MG OR TABS 05/16/2012 - 06/18/2016 Provider: MIA LAMABC Diagnosis: CANDIDAL VULVOVA GINITIS USE ONE TABLET DAY ONE AND ONE TABLET DAY 3 Last Documented On 06/18/2016 3:38PM By ROSAURA ROBLEDO ; [facility] Lo Loestrin Fe 1 MG-10 MCG / 10 MCG OR TABS 03/31/2012 - 06/27/2012 Provider: MIA TRUONG NP-BC Diagnosis: Last Documented On 2 11:11AM By MIA RECINOS ; [facility] Fluconazole 150 MG OR TABS 02/02/2012 - 05/16/2012 Provider: HANNAH KAY RN [facility] BC Diagnosis: CANDIDAL VULVOVA GINITIS USE ONE TABLET DAY ONE AND ONE TABLET DAY 3 Last Documented On 2 2:14PM By MIA RECINOS ; [facility] Lo Loestrin Fe 1 MG-10 MCG / 10 MCG OR TABS 01/27/2012 - 03/31/2012 Provider: MIA TRUONG NP-BC Diagnosis: Last Documented On 2 12:35PM By MIA RECINOS ; [facility] Flagyl 500 MG OR TABS 01/27/2012 - 03/15/2014 Provider : MIA LAMABC Diagnosis: Last Documented On 4 11:00AM By MIA RECINOS ; [facility] Epinastine HCl 0.05% OP SOLN 01/27/2012 - 03/25/2015 Bala jeffersder: Diagnosis: Last Documented On 03/25/2015 9:08AM By ROSAURA ROBLEDO ; [facility] predniSONE 10 MG OR TABS 01/27/2012 - 03/02/2013 Provi princess: Diagnosis: Last Documented On 03/02/2013 3:53PM By ROSAURA ROBLEDO ; [facility] Ortho-Cyclen (28) 0.25-35 MG-MCG OR TABS 01/07/2012 - 06/18/2016 Provider: MIA LYNN ASSET PROTECTION REPRESENTATIVE-BC Diagnosis: No further refills until mammogram done!! Last Documented On 06/18/2016 3:38PM By ROSAURA ROBLEDO ; [facility] Ortho-Cyclen (28) 0.25-35 MG-MCG OR TABS 01/19/2011 - 01/07/2012 Provider: MIA LYNN ASSET PROTECTION REPRESENTATIVE-BC Diagnosis: Last Documented On 2 8:11AM By MIA LYNN IVONNE-BC ; [facility] Ortho-Cyclen (28) 0.25-35 MG-MCG OR TABS 01/16/2011 - 01/19/2011 Provider: MIA TRUONG NP-BC Diagnosis: Last Documented On 1 8:32AM By MIA LYNN IVONNE-BC ; [facility] Ortho-Cyclen (28) 0.25-35 MG-MCG OR TABS 12/20/2009 - 01/16/2011 Provider: KAREN TRUJILLO AM IVONNE-BC,CNM Diagnosis: Last Documented On 1 10:13AM By MIA LYNN IVONNE-BC ; [facility] Ortho-Cyclen (28) 0.25-35 MG-MCG OR TABS 12/16/2009 - 12/20/2009 Provider: KAREN TRUJILLO AM IVONNE-BC,CNM Diagnosis: Last Documented On 12/20/2009 4:48PM By MOLLY YOUSSEF ; [facility] Ortho-Cyclen (28) 0.25-35 MG-MCG OR TABS 11/12/2008 - 06/18/2016 Provider: Diagnosis: Last Documented On 06/18/2016 3:38PM By ROSAURA ROBLEDO ; [facility] Medications Administered Includes: Administered Medications in patient's chart No Administered Medications Recorded Results Includes: Results from 01/11/2024 through 01/11/2025 No Results Recorded For Specified Dates History of Present Illness History of Present Illness not supported for this document type No History of Present Illness Recorded Social History Description Last Updated Not using alcohol 11/11/2023 Last Documented On 3 3:40PM ; [facility] Sexually active with 1 partn ers in the last year , control pills 11/11/2023 Last Documented On 3 3:40PM ; [facility] Tobacco non-user 08/14/2022 Last Documented On 2 1:46PM ; [facility] Not using drugs 08/13/2021 Last Documented On 1 9:55AM ; [facility] Smoking Status Unknown Procedures and Surgical History Surgical History Last Updated Previous colposcopy 202008/14/2022 Last Documented On 2 1:46PM ; [facility] History of appendectomy 08/13/2021 Last Documented On 1 9:55AM ; [facility] Surgical / procedural histor y oral surgery ~Deep tissue removed for mole on lower left back 08/13/2021 Last Documented On 1 9:55AM ; [facility] Medical History Includes: Medical History in patient's chart Description Last Updated History of diaignostic fiberoptic colono scopy 04/08/2022 11/11/2023 Last Documented On 3 3:40PM ; [facility] History of screening mammogram was perfo rmed 10/27/2022 11/11/2023 Last Documented On 3 3:40PM ; [facility] LMP: 10/20/2023 11/11/2023 Last Documented On 3 3:40PM ; [facility] Aborta 1 08/13/2021 Last Documented On 1 9:55AM ; [facility] Cancer 08/13/2021 Last Documented On 1 9:55AM ; [facility] Contraception: loloestrin 08/13/2021 Last Documented On 1 9:55AM ; [facility] 1 08/13/2021 Last Documented On 1 9:55AM ; [facility] History of acute bronchitis monitored by PCP 08/13/2021 Last Documented On 1 9:55AM ; [facility] History of cervical dysplasia 12-31-08 COL PO LGSIL 08/13/2021 Last Documented On 1 9:55AM ; [facility] History of human papilloma virus infecti on 08/13/2021 Last Documented On 1 9:55AM ; [facility] Sexually active 08/13/2021 Last Documented On 1 9:55AM ; [facility] Family History Includes: Family History in patient's chart Description Last Updated Family history reviewed - [facility] e last visit 11/11/2023 Last Documented On 3 3:40PM ; [facility] Maternal aunt's history of m alignant female breast neoplasm (2) maternal aunts 08/08/2020 Last Documented On 0 10:20AM ; [facility] Maternal history of hypertension mother 08/08/2020 Last Documented On 0 10:20AM ; [facility] Maternal uncle's history of diabetes lisbet litus maternal uncle 08/08/2020 Last Documented On 0 10:20AM ; [facility] Paternal grandfather's history of family history of heart disease pgf 08/08/2020 Last Documented On 0 10:20AM ; [facility] Review of Systems Review of Systems not supported for this document type No Review of Systems Recorded Mental Status No Mental Status Recorded Functional Status No Functional Status Recorded Physical Exam Physical Exam not supported for this document type No Physical Exam Recorded Allergies Includes: Active, inactive, and resolved Allergies No Known Allergies Encounters Includes: Encounters from 01/11/2024 through 01/11/2025 Encounter Provider Location Date Check-In Time Check-Out Time Diagnosis * PHONE CALL MIA LAMA 01/12/2024 11/11/2023 11:16AM 11/11/2023 11:59PM Insurance Includes: Active Insurance Policies Plan Name Member ID Group # Subscriber Relationship Effect alicja Dates 1 - [facility] [id number] VONDA SANTILLAN S [facility] Clinical Notes Includes: Signed Clinical Notes starting from 12/11/2022 * Progress note Date Encounter Last Documented by 01/12/2024 * PHONE CALL Last documented on 01/12/2024; 11:20 AM, MIA LYNN IVONNE-; [facility] Active Problems & Conditions - Compound Nevus [...] already. pt phone # for return call: [phone] Date/Initials: 01/12/24 . History of Present Illness VONDA SANTILLAN is [...]
--- OUTSIDE RECORDS SUMMARY | 2025-01-11 15:21 | XMS_ITS | Continuity of Care Document ---
Author Organization [facility] Address [address] [place] [address] [place] [address] Phone Care Team Providers Care Reception Interviewer Name Role Phone Lalo Collazo MD Unavailable Unavailable Allergies, Adverse Reactions, Alerts Substance Reaction Status Criticality No Known Allergies Active No Inform ation Medications Medication Instructions Dosage Effective Dates (start - stop) Status Comments Xifaxan 550 mg tablet take 1 tablet by o ral route 3 times every day 550 MG - Active Procedures Procedure Date PREV VISIT, NEW, AGE 40-64 OFFICE/OUTPATIENT VISIT, [facility] Advance Directives Directive Yes / No Effective Date File Name No Information Encounters Encounter Description Practice Location Reason(s) For Visit Diagnoses Date Provider Providers Copied on Encounter PREV VISIT, NEW, AGE 40-64 [facility], [address] [place], [place], [id number], [place] tel:[phone] [facility] Physical (chief complaint) Encounter for general adult medical exam w abnormal findingsIrritable bowel syndrome with diarrhea [address] [place], [id number] , [place]. tel:[phone] Referring Provider: Lalo Collazo, [address] [place], [id number]. tel:[phone] Family History Family Member Type Diagnosis Age At Onset Mother Problem (finding) Hypertension Father Problem (finding) Alive and well Brother Problem (finding) Alive and well Payers Payer name Insurance type Covered democrat ID Authoriza tion(s) No Information Social History Type Description Quantity Date Captured Comments Alcohol Use Details Caffeine Use Details Unknown Tobacco Use Status Current non-smoker 19 Smoking Status Never smoker Non-Smoking Tobacco Use Details : No Details Available : No Details Available Sex Female Vital Signs Date / Time: Height Weight BMI Pulse Rate Blood Pressure Temperature Respiratory Rate Body Surface Area Head Circumference BMI percentile Pulse Ox Inhaled Ox 3:17 PM 72.25 in 169.60 lbs 22.8 4 kg/m eter (2) 66 /min 123/62 mm[Hg] 97.4 F 16 /min Chief Complaint And Reason For Visit From encounter dated '08/11/2018 14:00'. Physical (chief complaint). Description: Pt needs annual physical. Pt states that she notices immediate need for BM 20 minutes after any type of food for the past two years. Pt notices that the frequency is getting more close. Pt states that she almost having above symptoms daily now regardless what type of food during the past several months Pt denies any blood in stool Pt has frequent diarrhea.Pt denies any blood Pt denies any nausea. Pt feels bloating/ Pt denies any nausea, vomiting Pt denies any weight loss Pt only eats at home now due to above. Pt does go when she goes. Pt never had colonoscopy Pt has mild abdominal crampy pain after BM sometimes Pt went to mens locker room attendant and had all type of food allergy testing which were negative. Pt failed imodium, etc. Plan Of Treatment Date Type Action Status No Information History Of Present Illness Encounter Date Complaint History Of Prese nt Illness Physical Pt needs annual physical. Pt states that she notices immediate need for BM 20 minutes after any type of food for the past two years. Pt notices that the frequency is getting more close. Pt states that she almost having above symptoms daily now regardless what type of food during the past several months Pt denies any blood in stool Pt has frequent diarrhea. Pt denies any blood Pt denies any nausea. Pt feels bloating/ Pt denies any nausea, vomiting Pt denies any weight loss Pt only eats at home now due to above. Pt does go when she goes. Pt never had colonoscopy Pt has mild abdominal crampy pain after BM sometimes Pt went to mens locker room attendant and had all type of food allergy testing which were negative. Pt failed imodium, etc. Instructions Date Instruction Additional Infor mation No Information Assessments Type Assessment Date assessment Encounter for general adult medi [facility] exam w abnormal findings assessment Irritable bowel syndrome with di arrhea Mental Status Date Cognitive Assessment Orientation - [place] ed to time, place, person, situation.
== END 2025-01-11 15:16 | disposition home or self-care (01) ==
LOC: ANHIMG 15:19
PROVIDERS: PCP Nurse Practitioner; Visit Provider Nurse Practitioner Women's Health
DX: Z12.31 Encounter for screening mammogram for malignant neoplasm of breast (principal)
CPT/HCPCS: 77063; 77067